=== PATIENT | male | born 1945 | race Hispanic/Latino ===

== ENCOUNTER 2024-09-24 06:30 | Day surgery (SDC) | payer OTHER ==
[2024-09-24] VITALS (13 sets, daily range): BP systolic 105–172; BP diastolic 44–71; PULSE 61–75; RESP 15–18; TEMP 97.3–98.1
[~2024-09-24] VITALS: Ht 170.2 cm; Wt 72.6 kg
[~2024-09-24 06:30] MED LIST: FERR-63 PO; LOSA100T59 PO; PRAV20TA4 PO; TAMS-1 PO
[2024-09-24] MEDS ORDERED: 0.9%NACL 1000ML 1,000 ML IV ONE (06:32)
[2024-09-24] MEDS: 0.9%NACL 1000ML 1,000 ML IV ONE (07:43)
[2024-09-24] MEDS ORDERED: proPOFol 10 MG/ML 20ML VIAL IV ONE (08:30)
--- NOTE | 2024-09-24 10:34 | NUR ---
FULL AND COMPLETE DISCHARGE INSTRUCTIONS GIVEN BOTH VERBALLY AND IN WRITING TO PATIENT AND FAMILY. ALL QUESTIONS ANSWERED. PIV REMOVED WITH CATHETER TIP INTACT. DENIES CURRENT PAIN OR NAUSEA. VOICED UNDERSTANDING TO GI INSTRUCTIONS AND FOLLOW UP. W/C TO POV WITH FAMILY TO HOME
== END 2024-09-24 10:34 | disposition home or self-care (01) ==
LOC: ENDO 06:30 → DAH 06:30 → ENDO 10:34
PROVIDERS: ATTEND Internal Medicine Gastroenterology
DX: Z12.11 Encounter for screening for malignant neoplasm of colon (principal); K57.30 Diverticulosis of large intestine without perforation or abscess without bleeding; K62.89 Other specified diseases of anus and rectum; C18.9 Malignant neoplasm of colon, unspecified; I10 Essential (primary) hypertension; E78.5 Hyperlipidemia, unspecified; Z87.442 Personal history of urinary calculi
CPT/HCPCS: 45381; 45380; J7030 ×2; J2704; A4620; A4215 ×2; J3490

== ENCOUNTER 2024-10-20 06:00 | Inpatient (IN) | payer OTHER ==
[2024-10-15 14:35] VITALS: BP 192/92; PULSE 74; RESP 18; TEMP 97.8
[2024-10-15 14:54] LABS: BASOPHILS # (AUTO) 0.02 K/uL (0.00-0.20); BASOPHILS % (AUTO) 0.3 % (0.0-5.0); EOSINOPHILS % (AUTO) 2.5 % (0.0-8.0); HEMATOCRIT 36.5 % (42-54); IMMATURE GRANULOCYTE ABSOLUTE 0.04 K/uL (0-1); LYMPHOCYTES # (AUTO) 2.8 K/uL (1.0-4.8); LYMPHOCYTES % (AUTO) 35.4 % (21.0-51.0); MEAN CORPUSCULAR HEMOGLOBIN 24.4 pg (27.0-33.0); MEAN CORPUSCULAR HGB CONC 30.4 g/dL (32.0-36.0); MEAN CORPUSCULAR VOLUME 80.2 fL (79-99); MONOCYTES # (AUTO) 0.4 K/uL (0.1-1.0); MONOCYTES % (AUTO) 4.5 % (3.0-13.0); NEUTROPHILS # (AUTO) 4.5 K/uL (1.8-7.7); NEUTROPHILS % (AUTO) 56.8 % (40.0-77.0); PLATELET COUNT (AUTO) 232 K/uL (130-400); RED BLOOD CELL COUNT(AUTO) 4.55 MIL/uL (4.50-6.20); RED CELL DISTRIBUTION WIDTH 16.8 % (11.0-15.5)
[2024-10-15 15:07] LABS: INR 0.97 (0.85-1.15); PROTHROMBIN TIME 10.9 SEC (9.6-11.6)
[2024-10-15 15:08] LABS: PARTIAL THROMBOPLASTIN TIME 30.9 SEC (26.3-35.5)
[2024-10-15 15:11] LABS: ALBUMIN 2.7 g/dL (3.5-5.0); BILIRUBIN,TOTAL 0.4 mg/dL (0.2-1.0); CREATININE 0.9 mg/dL (0.5-1.3); POTASSIUM 4.5 mmol/L (3.5-5.1); TOTAL PROTEIN, SERUM 6.7 g/dL (6.0-8.3)
--- NOTE | 2024-10-16 07:03 | EKG ---
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
[~2024-10-20] VITALS: Ht 172.7 cm; Wt 73.1 kg
[2024-10-20] VITALS (30 sets, daily range): BP systolic 135–185; BP diastolic 55–99; PULSE 78–98; RESP 13–20; TEMP 97.1–100.6; O2SAT 94
[~2024-10-20 06:00] MED LIST changes: +CYAN25002 SL
[2024-10-20] MEDS: MEROPENEM 1GM 1 GM VIAL ONE (06:58)
[2024-10-20] MEDS: LACTATED RINGERS 1000ML 1,000 ML IV ONE (06:59)
[2024-10-20] MEDS ORDERED: dexaMETHasone SOD PHOSPHATE 10MG/ML 1ML VIAL ONE (07:04)
[2024-10-20] MEDS ORDERED: LIDOCAINE PF 100MG/5ML (2%) SYRINGE 5ML ONE (07:04)
[2024-10-20] MEDS ORDERED: LIDOCAINE 1%-EPI 1:100,000 20 ML VIAL ONE (07:05)
[2024-10-20] MEDS ORDERED: rocuRONium bROMide 10MG/1ML 5ML VL ONE (07:05)
[2024-10-20] MEDS ORDERED: NEOSTIGMINE METHYLSULFATE 1MG/ML IV ONE (07:05)
[2024-10-20] MEDS ORDERED: proPOFol 10 MG/ML 20ML VIAL IV ONE (07:05)
[2024-10-20] MEDS ORDERED: SUCCINYLCHOLINE CHLORIDE 20 MG/ML 10 ML VIAL ONE (07:05)
[2024-10-20] MEDS ORDERED: FENTanyl CITRate PF 50 MCG/1 ML 2ML VIAL ONE ×3 (07:05→08:49)
[2024-10-20] MEDS ORDERED: GLYCOPYRROLATE 0.2 MG/ML 5 ML VIAL ONE (07:05)
[2024-10-20] MEDS ORDERED: ondanSETRON 4MG INJ ONE (07:05)
[2024-10-20] MEDS ORDERED: phenylEPHRINE HCL 10 MG/ML 1ML VIAL IV ONE (07:10)
[2024-10-20] MEDS ORDERED: ketaMINE 50MG/ML SYRINGE 50 MG/ML DISP.SYRIN ONE (07:40)
[2024-10-20] MEDS ORDERED: ALBUMIN (HUMAN) 5% 250 ML IV ONE (07:40)
[2024-10-20] MEDS ORDERED: MIDAZOLAM HCL 1 MG/ML 2ML VIAL ONE (07:43)
[2024-10-20] MEDS: BUPIvacaine/PF 0.5% 30ML VIAL ONE (10:20)
[2024-10-20] MEDS: LIDOCAINE 1%-EPI 1:100,000 20 ML VIAL ONE (10:20)
[2024-10-20] MEDS ORDERED: FENTanyl CITRate PF 50 MCG/1 ML 5ML AMP IV ONE (10:28)
--- NOTE | 2024-10-20 10:56 | OP ---
Operative Note: DATE OF PROCEDURE: 10/20/24 SURGEON: CESAR SHOEMAKER MD BILLPOSTING SUPERVISOR: [None.] ANESTHESIA: [General plus local.] ANESTHESIOLOGIST/RESIDENTIAL SOLAR SALES CONSULTANT: [Darci Beal CRNA] PREOPERATIVE DIAGNOSIS: [Malignant neoplasm of the ascending colon] POSTOPERATIVE DIAGNOSIS: [Same] SYNOPSIS: [Proven adenocarcinoma of the ascending colon] PROCEDURE: [Robotic assisted right hemicolectomy. Infusion of ICG for perfusion assessment of the graft. Create of pedicle omental flap.] ESTIMATED BLOOD LOSS: [25 mL] INDICATIONS: [This is a 79-year-old male who was diagnosed with an carcinoma of the ascending colon following a visit to the ER the trigger a CT scan of the abdomen and a mass was found. Colonoscopy confirmed the diagnosis. Staging was negative for metastatic disease. He presents today for a robotic assisted right hemicolectomy and all other indicated procedures. The mass was partially occluding the lumen so he was advised to undergo surgery. Risks were abrasions and alternatives were explained in detail to the patient, and after all questions were answered to his satisfaction, he granted consent.] DESCRIPTION OF PROCEDURE: [The patient was identified in the holding area transferred to the OR placed supine on the operative table. Venodyne boots were placed for DVT prophylaxis. IV antibiotics were given within the hour of skin incision. After general anesthesia was obtained time-out conducted his abdomen was prepped and draped in the usual sterile fashion. We gained access to the abdomen via Veress needle in the left upper quadrant, pneumoperitoneum created to 15 mmHg. Under direct vision 8 mm port placed to the right of the infraumbilical region. This was followed by a mm ports linearly in the lower abdomen a 12 mm port in the left lower quadrant. Assist port was placed in the left flank of the patient. The Maria Eugenia excise was doc in a sterile fashion. It was clearly evident the patient had a large mass in the ascending colon identified by the colon appearance and the tattoo previously placed. We began the procedure by taking down the colon gastric ligament this was done without complications. Then the colon was mobilized in the medial-lateral fashion. The ileocolic vessels were dissected all the way to the origin and transected with a stapler device. The middle colic vessels were identified in the left colic basal taken with the vessel sealer as well as a right colic coming out of the SMA. Complete mobilization of the colon was performed and it was a staple at the mid transverse colon and the terminal ileum with a blue load. The specimen was then extracted via Pfannenstiel incision. Surgical bed was irrigated and aspirated clear and hemostasis noted to be excellent. ICG was given an excellent perfusion identified. The colon was then line up with the small bowel and a [id number] anastomosis, in an isoperistaltic fashion, was performed with a YOUSIF robotic stapler. The common channel was closed in two layers with V lock sutures in a 3-0 absorbable fashion. Abdomen was irrigated and aspirated clear hemostasis noted to be excellent, the anastomosis was then assessed perfusion once again we ICG and noted to be excellent. An omental flap was created with a pedicle from the gastroepiploic to cover the anastomosis. At this point procedure was completed. There was no tension in the anastomosis and excellent perfusion. Counts were done and correct. The robot was undocked ports removed under direct vision. Pfannenstiel incision closed in layers with Vicryl followed by PDS followed by 4-0 Monocryl. Profuse irrigation of the skin and subcutaneous tissues was performed with saline and Betadine. Local anesthesia had been injected in the wounds. 4-0 Monocryl used for the skin followed by Dermabond. Counts were done and correct once again there were no complications I was present and scrubbed for the entire case.] CESAR LEHMAN MD Oct 20, 2024 10:56
[2024-10-20] MEDS ORDERED: D5W-1/2 NS/20MEQ KCL 1,000 ML IV SCH (11:00)
[2024-10-20] MEDS ORDERED: morPHINE 4 MG SYG IV PRN (11:00)
[2024-10-20] MEDS ORDERED: ondanSETRON 4MG INJ IVP PRN (11:00)
[2024-10-20] MEDS: hydrALAZine 20MG/ML VIAL ONE (11:33)
[2024-10-20] MEDS: LAbetaLOL 20MG SYG IV ONE (13:20)
[2024-10-20] MEDS: HEParin 5,000 UNIT VIAL SQ SCH (14:00)
[2024-10-20 15:17] LABS: HEMATOCRIT 35.9 % (42-54); MEAN CORPUSCULAR HEMOGLOBIN 24.3 pg (27.0-33.0); MEAN CORPUSCULAR HGB CONC 30.9 g/dL (32.0-36.0); MEAN CORPUSCULAR VOLUME 78.7 fL (79-99); PLATELET COUNT (AUTO) 240 K/uL (130-400); RED BLOOD CELL COUNT(AUTO) 4.56 MIL/uL (4.50-6.20); RED CELL DISTRIBUTION WIDTH 16.7 % (11.0-15.5)
[2024-10-20 15:21] LABS: BASOPHILS # (AUTO) 0.01 K/uL (0.00-0.20); BASOPHILS % (AUTO) 0.1 % (0.0-5.0); IMMATURE GRANULOCYTE ABSOLUTE 0.04 K/uL (0-1); LYMPHOCYTES # (AUTO) 2.1 K/uL (1.0-4.8); LYMPHOCYTES % (AUTO) 17.4 % (21.0-51.0); MONOCYTES # (AUTO) 0.7 K/uL (0.1-1.0); MONOCYTES % (AUTO) 5.5 % (3.0-13.0); NEUTROPHILS # (AUTO) 9.3 K/uL (1.8-7.7); NEUTROPHILS % (AUTO) 76.7 % (40.0-77.0)
[2024-10-20 15:32] LABS: ALBUMIN 2.8 g/dL (3.5-5.0); BILIRUBIN,TOTAL 0.6 mg/dL (0.2-1.0); TOTAL PROTEIN, SERUM 6.2 g/dL (6.0-8.3)
[2024-10-20] MEDS: HYDROcodone/APAP 5/325 1 TAB TABLET PO PRN (20:33)
[2024-10-21] VITALS (8 sets, daily range): BP systolic 142–184; BP diastolic 60–79; PULSE 86–106; RESP 17–20; TEMP 98–99.5; O2SAT 100
[2024-10-21 05:39] LABS: BASOPHILS # (AUTO) 0.01 K/uL (0.00-0.20); BASOPHILS % (AUTO) 0.1 % (0.0-5.0); IMMATURE GRANULOCYTE ABSOLUTE 0.04 K/uL (0-1); LYMPHOCYTES # (AUTO) 3.3 K/uL (1.0-4.8); LYMPHOCYTES % (AUTO) 24.7 % (21.0-51.0); MEAN CORPUSCULAR HGB CONC 31.1 g/dL (32.0-36.0); MEAN CORPUSCULAR VOLUME 76.9 fL (79-99); MONOCYTES # (AUTO) 0.5 K/uL (0.1-1.0); MONOCYTES % (AUTO) 3.7 % (3.0-13.0); NEUTROPHILS # (AUTO) 9.5 K/uL (1.8-7.7); NEUTROPHILS % (AUTO) 71.2 % (40.0-77.0); PLATELET COUNT (AUTO) 246 K/uL (130-400); RED BLOOD CELL COUNT(AUTO) 4.55 MIL/uL (4.50-6.20); RED CELL DISTRIBUTION WIDTH 16.7 % (11.0-15.5); WHITE BLOOD COUNT (AUTO) 13.3 K/uL (4.8-10.8)
[2024-10-21 05:56] LABS: POTASSIUM 4.1 mmol/L (3.5-5.1)
--- NOTE | 2024-10-21 07:11 | PN ---
COLORECTAL PROGRESS NOTE Date of Visit: Oct 21, 2024 Time of Visit: 07:08 Events / Notes: [79 YO with ascending colon cancer who underwent a robotic assisted right hemicolectomy with omental flap creation, and Systemic ICG for perfusion assessment of anastomotic graft. He had elevated temp 100.6 last night. He is doing very well this morning. His pain is controlled. VSS this am. He has tolerated full liquid diet with no n/v. BBS are clear. Abd is soft and not distended. Active BS present. He reports passing flatus and watery stool x 1. He is voiding well. Incisions D&I rock with dermabond. Encouraged ambulation and I/S exercises.He agreed. ] Review of Systems: CONSTITUTIONAL: No malaise or change in sensation of wellbeing. ENMT: No rhinorrhea, otorrhea, sinus pain, ear ache. CARDIOVASCULAR: No angina, palpitations, orthopnea or paroxysmal dyspnea. RESPIRATORY: No SOB. GASTROINTESTINAL: No abdominal pain, nausea, vomiting, diarrhea, hematemesis, melena or change in the patient's habitual bowel movements consistency/number. GENITOURINARY: No dysuria, hematuria or change in bladder continence. MUSCULOSKELETAL: No new muscle pain or decrease in muscular strength. No new joint swelling, redness or tenderness. SKIN: No new rash. Physical Exam: GEN: Awake, alert, oriented in person, time and place, and in no acute distress. HEENT: No rhinorrhea. Oral pharyngeal mucosa is pink, moist and within normal limits. CHEST: Inspection, palpation of the chest were unremarkable. Lung auscultation revealed normal breath sounds bilaterally. CARDIAC: Heart sounds are regular. ABD: Soft, non-tender and not distended. No peritoneal signs on palpation. No organomegaly. Normal bowel sounds.Incisions D& I to with dermabond. EXT: No cyanosis or clubbing. No edema. SKIN: Intact. No rashes. JOINTS: No evidence of synovitis or acute arthritis. NEURO: Alert and oriented to name, place and person. No focal motor deficits. Normal speech. Strength is normal. Vital Signs (last 8hr) Date Time Temp Pulse Resp B/P (MAP) Pulse Ox O2 Delivery O2 Flow Rate FiO2 10/21/24 04:23 99.0 87 17 145/60 96 Room Air 21 10/20/24 23:33 100.6 88 17 150/57 94 Room Air 21 Laboratory: [ ] Laboratory: Test 10/21/24 05:26 10/20/24 15:00 Range/Units White Blood Count 13.3 H 4.8-10.8 K/uL Red Blood Count 4.55 4.50-6.20 MIL/uL Hemoglobin 10.9 L 14.0-18.0 g/dL Hematocrit 35.0 L 42-54 % Mean Corpuscular Volume 76.9 L 79-99 fL Mean Corpuscular Hemoglobin 24.0 L 27.0-33.0 pg Mean Corpuscular Hemoglobin Concent 31.1 L 32.0-36.0 g/dL Red Cell Distribution Width 16.7 H 11.0-15.5 % Platelet Count 246 130-400 K/uL Mean Platelet Volume 10.1 7.5-10.5 fL Immature Granulocyte % (Auto) 0.3 0-1 % Neutrophils (%) (Auto) 71.2 40.0-77.0 % Lymphocytes (%) (Auto) 24.7 21.0-51.0 % Monocytes (%) (Auto) 3.7 3.0-13.0 % Eosinophils (%) (Auto) 0.0 0.0-8.0 % Basophils (%) (Auto) 0.1 0.0-5.0 % Neutrophils # (Auto) 9.5 H 1.8-7.7 K/uL Lymphocytes # (Auto) 3.3 1.0-4.8 K/uL Monocytes # (Auto) 0.5 0.1-1.0 K/uL Eosinophils # (Auto) 0.00 0.00-0.70 K/uL Basophils # (Auto) 0.01 0.00-0.20 K/uL Absolute Immature Granulocyte (auto 0.04 0-1 K/uL Nucleated Red Blood Cells 0.0 0.0-0.19 % Sodium Level 138 136-145 mmol/L Potassium Level 4.1 3.5-5.1 mmol/L Chloride Level 103 101-111 mmol/L Carbon Dioxide Level 29 21-32 mmol/L Blood Urea Nitrogen 11 7-18 mg/dL Creatinine 1.0 0.5-1.3 mg/dL Glomerular Filtration Rate Calc 78 >90 mL/min Random Glucose 119 H 70-105 mg/dL Total Calcium 8.6 8.5-10.1 mg/dL Total Bilirubin 0.6 0.2-1.0 mg/dL Aspartate Amino Transf (AST/SGOT) 14 10-37 U/L Alanine Aminotransferase (ALT/SGPT) 15 12-78 U/L Alkaline Phosphatase 88 50-136 U/L Total Protein 6.2 6.0-8.3 g/dL Albumin 2.8 L 3.5-5.0 g/dL Current Medications Medications (Trade) Dose Ordered Sig/Hayden Route PRN Reason Start Time Stop Time Status Last Admin Dose Admin Acetaminophen/ Hydrocodone Bitart (NORco 5/325MG) 1 tab Q4H PRN PO MODERATE PAIN (4-6) 10/20/24 11:00 10/25/24 10:59 10/20/24 20:33 1 TAB Heparin Sodium (Porcine) (HEParin 5,000 UNIT VIAL) 5,000 unit TID SQ 10/20/24 14:00 11/19/24 13:59 10/20/24 20:37 5,000 UNIT Morphine Sulfate (morPHINE 4MG SYG) 4 mg Q3H PRN IV SEVERE PAIN (7-10) 10/20/24 11:00 10/27/24 10:59 Ondansetron HCl (zoFRAN 4MG INJ) 4 mg Q4H PRN IVP NAUSEA 10/20/24 11:00 11/19/24 10:59 Potassium Chloride/Dextrose/ Sod Cl 1,000 ml @ 75 mls/hr [id number] IV 10/20/24 11:00 11/19/24 10:59 Assessment: [ Ascending colon cancer] Plan: [Advance diet Encourage ambulation Encourage I/S exercises Pain meds as needed Antiemetics prn Plan for disposition in the next 24-48 hours Please call with questions, concerns, and change in clinical status Appreciate hospitalist's assistance in our patient care. ] ADA ZHONG NP Oct 21, 2024 07:11
--- NOTE | 2024-10-21 12:36 | CONS ---
[facility] CONSULTATION NOTE Date of Service: Oct 21, 2024 Reason for Consultation: [Medical management ] Requesting Physician: [Dr. Tre Fajardo ] HISTORY OF PRESENT ILLNESS: [79-year-old male with a history of malignant neoplasm of ascending colon. The patient was being followed by [place] digestive specialist. He has past medical history of essential hypertension and hyperlipidemia. Apparently this patient had a CT at [facility] and underwent colonoscopy after he was found to have mass on CT scan. He was under going workup for recurrent UTIs. This patient had biopsy proven adenocarcinoma of the colon. Patient has been stage and there is no clear evidence of metastatic disease. He was offered surgery for robotic versus laparoscopic versus open partial colectomy for which was done on 10/20/2024, and tolerated well. Today, patient was evaluated in the room in no acute distress. Colorectal surgeon advance his diet and plans on discharging him today. We were consulted for medical management. ] REVIEW OF SYSTEMS CONSTITUTIONAL: Denies fevers, chills, or night sweats. No unintentional weight loss reported. NEUROLOGICAL: Denies headache, amaurosis fugax, motor weakness, sensory deficit, vertigo/spinning sensation, gait abnormalities, or tremors. ENT: No hearing loss, otalgia, otorrhea, rhinitis, rhinorrhea, hoarseness, or sore throat. CARDIOVASCULAR: Denies any exertional angina, dyspnea on exertion, orthopnea, paroxysmal nocturnal dyspnea, palpitations, life-threatening arrhythmias, claudication. PULMONARY: Denies any shortness of breath, cough, phlegm/sputum, hemoptysis, pleuritic chest pain. SLEEP: Denies morning headaches, daytime somnolence or napping. Denies diffic ulty falling asleep, staying asleep, waking from sleep. Denies knowledge of snoring. GASTROINTESTINAL: Denies any type of dysphagia to either liquids or solids. Denies nausea, vomiting, pyrosis, early satiety, abdominal pain, diarrhea, constipation, or changes in stool consistency or caliber. Denies coffee-ground emesis, hematemesis, hematochezia, or melanotic stools. GENITOURINARY: Denies frequency, urgency, nocturia, hematuria or incontinence (Storage/Irritative symptoms.) Low urinary stream, straining to void, urinary intermittency or hesitancy, splitting of the voiding stream, terminal dribbling. ENDOCRINOLOGIC: Denies polyuria, polydipsia, polyphagia or heat/cold into lerances. HEMATOLOGIC: Denies thrombophilia/previous clots, or coagulopathy/bleeding disorders. ONCOLOGIC: Denies personal history of malignancy. DERMATOLOGIC: Denies rashes or pruritus. PSYCHIATRIC: Denies any suicidal or homicidal ideation. Denies hallucinations. PAST MEDICAL HISTORY: [Hypertension, hyperlipidemia, kidney stones ] PAST SURGICAL HISTORY: [Colonoscopy ] PAST SOCIAL HISTORY: [Patient has five daughters, denies tobacco, alcohol or illicit drug use ] FAMILY HISTORY: [Sister passed from lung cancer and non-Hodgkin's lymphoma ] Coded Allergies: No Known Allergies (Unverified Allergy, Unknown, 09/23/24) PHYSICAL EXAM GENERAL APPEARANCE: The patient is awake, alert, and oriented, in no acute cardiopulmonary distress. NEUROLOGICAL: Cranial nerves II-XII grossly intact. Motor is 5/5 in bilateral upper and lower extremities proximal to distal. No sensory deficits. HEENT: Face is symmetric. Pupils are equal and reactive. Extraocular movements are intact. NECK: Supple. No JVD. No thyromegaly. No submental, submandibular, pre- /postauricular, occipital or supraclavicular lymphadenopathy. CHEST: Normal chest expansion. No Telemetry. LUNGS: Absence of any rales, rhonchi or any wheezing. CARDIOVASCULAR: Regular. S1 and S2 normal. No appreciable rubs, murmurs or gallops. ABDOMEN: Soft, nontender, and nondistended. There is no rebound, voluntary guarding, or rigidity. : Deferred. No Owens. EXTREMITIES: Non-edematous and not cyanotic. No clubbing. Good capillary refill. SKIN: No skin breakdown. Vital Sign (Last 24 Hours) 10/21/24 10/21/24 07:30 11:05 Temp 98.1 Pulse 90 Resp 20 B/P (MAP) 147/66 Pulse Ox 95 O2 Delivery Room Air O2 Flow Rate 0 FiO2 21 Intake & Output (last 24hrs) 10/20/24 10/20/24 10/21/24 15:00 23:00 07:00 Intake Total 250.0 ml Output Total 300 ml Balance -50.0 ml LABS: Laboratory: Test 10/21/24 05:26 10/20/24 15:00 Range/Units White Blood Count 13.3 H 4.8-10.8 K/uL Red Blood Count 4.55 4.50-6.20 MIL/uL Hemoglobin 10.9 L 14.0-18.0 g/dL Hematocrit 35.0 L 42-54 % Mean Corpuscular Volume 76.9 L 79-99 fL Mean Corpuscular Hemoglobin 24.0 L 27.0-33.0 pg Mean Corpuscular Hemoglobin Concent 31.1 L 32.0-36.0 g/dL Red Cell Distribution Width 16.7 H 11.0-15.5 % Platelet Count 246 130-400 K/uL Mean Platelet Volume 10.1 7.5-10.5 fL Immature Granulocyte % (Auto) 0.3 0-1 % Neutrophils (%) (Auto) 71.2 40.0-77.0 % Lymphocytes (%) (Auto) 24.7 21.0-51.0 % Monocytes (%) (Auto) 3.7 3.0-13.0 % Eosinophils (%) (Auto) 0.0 0.0-8.0 % Basophils (%) (Auto) 0.1 0.0-5.0 % Neutrophils # (Auto) 9.5 H 1.8-7.7 K/uL Lymphocytes # (Auto) 3.3 1.0-4.8 K/uL Monocytes # (Auto) 0.5 0.1-1.0 K/uL Eosinophils # (Auto) 0.00 0.00-0.70 K/uL Basophils # (Auto) 0.01 0.00-0.20 K/uL Absolute Immature Granulocyte (auto 0.04 0-1 K/uL Nucleated Red Blood Cells 0.0 0.0-0.19 % Sodium Level 138 136-145 mmol/L Potassium Level 4.1 3.5-5.1 mmol/L Chloride Level 103 101-111 mmol/L Carbon Dioxide Level 29 21-32 mmol/L Blood Urea Nitrogen 11 7-18 mg/dL Creatinine 1.0 0.5-1.3 mg/dL Glomerular Filtration Rate Calc 78 >90 mL/min Random Glucose 119 H 70-105 mg/dL Total Calcium 8.6 8.5-10.1 mg/dL Total Bilirubin 0.6 0.2-1.0 mg/dL Aspartate Amino Transf (AST/SGOT) 14 10-37 U/L Alanine Aminotransferase (ALT/SGPT) 15 12-78 U/L Alkaline Phosphatase 88 50-136 U/L Total Protein 6.2 6.0-8.3 g/dL Albumin 2.8 L 3.5-5.0 g/dL DIAGNOSTICS / RADIOLOGY: [ ] ASSESSMENT: [Adenocarcinoma of the colon Hypertension Hyperlipidemia Kidney insufficiency ] PLAN: [Admit to medical-surgical floor We will follow postop orders from colorectal surgeon Patient's diet as been advanced to GI soft No more IV fluids DC planning per primary Treatment plan discussed with patient and family at the bedside Medications to be reconciled once obtained by patient and/or family and available to be reconciled in computer P.r.n. medication for pain nausea and vomiting Questions were answered We will continue to monitor the patient closely Director Industrial Nursing for disposition Rehab: PT/OT/ST GI: PPI DVT: SCD's Code Status: Full Resuscitation Disposition: TBD Prognosis: Guarded NEURO: Minimize central acting medications as possible. Fall Precautions. Well lighted room through the day and minimize interruptions through the night to prevent acute delirium. PULMONARY: Supplemental 02 as needed BiPAP as necessary, for respiratory distress Titrate Fio2 to keep Spo2 > or = 90% DuoNebs and CPT as needed IS hourly while awake for pulmonary hygiene Out of bed to chair as tolerated VAP Bundle Maintain aspiration precautions at all times CARDIOVASCULAR: Follow hemodynamics. Vital signs per facility protocol GI & NUTRITION: Continue nutritional support Aspirations precautions Prokinetic agents and laxatives as needed KIDNEYS & ELECTROLYTES: Strict monitoring of intake and output Daily weights Avoid nephrotoxic agents Monitor electrolytes and replace as needed Goal urine output of 30mL/hr or 0.5mL/kg/hr Medications to be dosed according to renal function. Avoid contrast if possible ENDOCRINE: Maintain blood glucose between 100-180 at all times. Insulin sliding scale for blood glucose management Hypoglycemia and hyperglycemia protocol in place INFECTIOUS DISEASE: Trend temperature, WBC and procalcitonin level Follow cultures, deescalate antibiotics as soon as possible. Panculture if new onset fever HEMATOLOGY & COAGULATION: Monitor H&H. Keep Hgb > 7 Transfuse 1 unit of PRBC for Hgb < 7 Transfuse 1 pack of platelets of platelets < 20, 000 Watch for any signs and symptoms of bleeding SKIN: Pressure ulcer prevention per facility protocol Specialty mattress as needed ] ] ATTESTATION BY PHYSICIAN I have seen and examined the patient. I reviewed the documentation, medical decision making, and treatment plan as noted by the mid-level provider above. I agree with the findings and plan of care. Olga Lugo MD, JANICE B BANNER MD [facility] Oct 21, 2024 12:36
[2024-10-21] MEDS ORDERED: acetaMINOPHEN 325 MG TAB PO PRN ×2 (13:00)
[2024-10-21] MEDS: FAMOTIDINE 20MG TAB PO SCH (20:53)
[2024-10-22] VITALS (7 sets, daily range): BP systolic 113–154; BP diastolic 61–90; PULSE 86–110; RESP 17–18; TEMP 97.9–98.7; O2SAT 97–100
[2024-10-22 06:11] LABS: BASOPHILS # (AUTO) 0.02 K/uL (0.00-0.20); BASOPHILS % (AUTO) 0.1 % (0.0-5.0); LYMPHOCYTES # (AUTO) 3.2 K/uL (1.0-4.8); MEAN CORPUSCULAR HEMOGLOBIN 24.1 pg (27.0-33.0); MEAN CORPUSCULAR HGB CONC 31.4 g/dL (32.0-36.0); MEAN CORPUSCULAR VOLUME 76.9 fL (79-99); MONOCYTES # (AUTO) 0.5 K/uL (0.1-1.0); MONOCYTES % (AUTO) 3.3 % (3.0-13.0); NEUTROPHILS # (AUTO) 12.1 K/uL (1.8-7.7); PLATELET COUNT (AUTO) 275 K/uL (130-400); RED BLOOD CELL COUNT(AUTO) 4.81 MIL/uL (4.50-6.20); RED CELL DISTRIBUTION WIDTH 16.9 % (11.0-15.5); WHITE BLOOD COUNT (AUTO) 15.9 K/uL (4.8-10.8)
[2024-10-22 06:24] LABS: CREATININE 0.8 mg/dL (0.5-1.3); MAGNESIUM 1.8 mg/dL (1.80-2.40); POTASSIUM 4.3 mmol/L (3.5-5.1)
--- NOTE | 2024-10-22 08:30 | PN ---
COLOR[facility] PROGRESS NOTE Date of Visit: Oct 22, 2024 Time of Visit: 08:27 Events / Notes: [79 YO with ascending colon cancer who underwent a robotic assisted right hemicolectomy with omental flap creation, and Systemic ICG for perfusion assessment of anastomotic graft. He had elevated temp 100.6 last night. He is doing very well this morning. His pain is controlled. VSS this am. He has tolerated full liquid diet with no n/v. BBS are clear. Abd is soft and not distended. Active BS present. He reports passing flatus and watery stool x 1. He is voiding well. Incisions D&I rock with dermabond. Encouraged ambulation and I/S exercises.He agreed. 10/22/24: No acute events overnight. Patient is progressing very well. VSS. He is tolerating regular diet; no n/v. He is ambulating, voiding and has had +BMS. BBS are clear. Abdomen is soft and not distended. Active BS are present. Plan for discharge this afternoon after repeat CBC. Encouraged ambulation. All home care instructions with ER warnings were given to patient and daughter. Both verbalized understanding and agreement. ] Review of Systems: CONSTITUTIONAL: No malaise or change in sensation of wellbeing. ENMT: No rhinorrhea, otorrhea, sinus pain, ear ache. CARDIOVASCULAR: No angina, palpitations, orthopnea or paroxysmal dyspnea. RESPIRATORY: No SOB. GASTROINTESTINAL: No abdominal pain, nausea, vomiting, diarrhea, hematemesis, melena or change in the patient's habitual bowel movements consistency/number. GENITOURINARY: No dysuria, hematuria or change in bladder continence. MUSCULOSKELETAL: No new muscle pain or decrease in muscular strength. No new joint swelling, redness or tenderness. SKIN: No new rash. Physical Exam: GEN: Awake, alert, oriented in person, time and place, and in no acute distress. HEENT: No rhinorrhea. Oral pharyngeal mucosa is pink, moist and within normal limits. CHEST: Inspection, palpation of the chest were unremarkable. Lung auscultation revealed normal breath sounds bilaterally. CARDIAC: Heart sounds are regular. ABD: Soft, non-tender and not distended. No peritoneal signs on palpation. No organomegaly. Normal bowel sounds.Incisions D& I to with dermabond. EXT: No cyanosis or clubbing. No edema. SKIN: Intact. No rashes. JOINTS: No evidence of synovitis or acute arthritis. NEURO: Alert and oriented to name, place and person. No focal motor deficits. Normal speech. Strength is normal. Vital Signs (last 8hr) Date Time Temp Pulse Resp B/P (MAP) Pulse Ox O2 Delivery O2 Flow Rate FiO2 10/22/24 07:15 97.9 89 18 113/61 96 Room Air 21 10/22/24 03:25 98.8 110 17 145/85 97 Room Air 21 Laboratory: [ ] Laboratory: Test 10/22/24 05:34 10/20/24 15:00 Range/Units White Blood Count 15.9 H 4.8-10.8 K/uL Red Blood Count 4.81 4.50-6.20 MIL/uL Hemoglobin 11.6 L 14.0-18.0 g/dL Hematocrit 37.0 L 42-54 % Mean Corpuscular Volume 76.9 L 79-99 fL Mean Corpuscular Hemoglobin 24.1 L 27.0-33.0 pg Mean Corpuscular Hemoglobin Concent 31.4 L 32.0-36.0 g/dL Red Cell Distribution Width 16.9 H 11.0-15.5 % Platelet Count 275 130-400 K/uL Mean Platelet Volume 10.5 7.5-10.5 fL Immature Granulocyte % (Auto) 0.6 0-1 % Neutrophils (%) (Auto) 76.0 40.0-77.0 % Lymphocytes (%) (Auto) 20.0 L 21.0-51.0 % Monocytes (%) (Auto) 3.3 3.0-13.0 % Eosinophils (%) (Auto) 0.0 0.0-8.0 % Basophils (%) (Auto) 0.1 0.0-5.0 % Neutrophils # (Auto) 12.1 H 1.8-7.7 K/uL Lymphocytes # (Auto) 3.2 1.0-4.8 K/uL Monocytes # (Auto) 0.5 0.1-1.0 K/uL Eosinophils # (Auto) 0.00 0.00-0.70 K/uL Basophils # (Auto) 0.02 0.00-0.20 K/uL Absolute Immature Granulocyte (auto 0.10 0-1 K/uL Nucleated Red Blood Cells 0.0 0.0-0.19 % Sodium Level 142 136-145 mmol/L Potassium Level 4.3 3.5-5.1 mmol/L Chloride Level 107 101-111 mmol/L Carbon Dioxide Level 27 21-32 mmol/L Blood Urea Nitrogen 12 7-18 mg/dL Creatinine 0.8 0.5-1.3 mg/dL Glomerular Filtration Rate Calc 91 >90 mL/min Random Glucose 121 H 70-105 mg/dL Total Calcium 8.8 8.5-10.1 mg/dL Magnesium Level 1.80 1.80-2.40 mg/dL Total Bilirubin 0.6 0.2-1.0 mg/dL Aspartate Amino Transf (AST/SGOT) 14 10-37 U/L Alanine Aminotransferase (ALT/SGPT) 15 12-78 U/L Alkaline Phosphatase 88 50-136 U/L Total Protein 6.2 6.0-8.3 g/dL Albumin 2.8 L 3.5-5.0 g/dL Current Medications Medications (Trade) Dose Ordered Sig/Hayden Route PRN Reason Start Time Stop Time Status Last Admin Dose Admin Acetaminophen (TYLenol 325MG TAB) 650 mg Q4H PRN PO TEMPERATURE GREATER THAN 101.5 10/21/24 13:00 11/20/24 12:59 Acetaminophen (TYLenol 325MG TAB) 650 mg Q6H PRN PO MILD PAIN (1-3) 10/21/24 13:00 11/20/24 12:59 Acetaminophen/ Hydrocodone Bitart (NORco 5/325MG) 1 tab Q4H PRN PO MODERATE PAIN (4-6) 10/20/24 11:00 10/25/24 10:59 10/21/24 16:31 1 TAB Famotidine (Pepcid 20mg Tab) 20 mg BID PO 10/21/24 21:00 11/20/24 20:59 10/21/24 20:53 20 MG Heparin Sodium (Porcine) (HEParin 5,000 UNIT VIAL) 5,000 unit TID SQ 10/20/24 14:00 11/19/24 13:59 10/21/24 20:55 5,000 UNIT Morphine Sulfate (morPHINE 4MG SYG) 4 mg Q3H PRN IV SEVERE PAIN (7-10) 10/20/24 11:00 10/27/24 10:59 Ondansetron HCl (zoFRAN 4MG INJ) 4 mg Q4H PRN IVP NAUSEA 10/20/24 11:00 11/19/24 10:59 Potassium Chloride/Dextrose/ Sod Cl 1,000 ml @ 75 mls/hr [id number] IV 10/20/24 11:00 10/21/24 08:07 DC Assessment: [ Ascending colon cancer POD2: Patient progressing as expected.VSS. WBC elevated to 15 this am. Will repeat this afternoon. Plan for discharge if WBC begins trending down. ] Plan: [Advance diet Encourage ambulation Encourage I/S exercises Pain meds as needed Antiemetics prn Plan for disposition in the next 24 Please call with questions, concerns, and change in clinical status Appreciate hospitalist's assistance in our patient care. ] ADA ZHONG NP Oct 22, 2024 08:30
--- NOTE | 2024-10-22 10:42 | PN ---
[facility] PROGRESS NOTE Date of Service: Oct 22, 2024 Time of Service: 10:39 SUBJECTIVE: [79-year-old male with adenocarcinoma of the colon status post right colectomy on 10/21/2024. He was evaluated this morning, lying in bed, alert oriented x3. Abdominal surgical site noted no redness but tender to touch. Patient's vitals reviewed, patient was tachycardic last night. [place] [id number]. ] REVIEW OF SYSTEMS CONSTITUTIONAL: Denies fevers, chills, or night sweats. No unintentional weight loss reported. NEUROLOGICAL: Denies headache, amaurosis fugax, motor weakness, sensory deficit, vertigo/spinning sensation, gait abnormalities, or tremors. ENT: No hearing loss, otalgia, otorrhea, rhinitis, rhinorrhea, hoarseness, or sore throat. CARDIOVASCULAR: Denies any exertional angina, dyspnea on exertion, orthopnea, paroxysmal nocturnal dyspnea, palpitations, life-threatening arrhythmias, claudication. PULMONARY: Denies any shortness of breath, cough, phlegm/sputum, hemoptysis, pleuritic chest pain. SLEEP: Denies morning headaches, daytime somnolence or napping. Denies difficulty falling asleep, staying asleep, waking from sleep. Denies knowledge of snoring. GASTROINTESTINAL: Denies any type of dysphagia to either liquids or solids. Denies nausea, vomiting, pyrosis, early satiety, abdominal pain, diarrhea, constipation, or changes in stool consistency or caliber. Denies coffee-ground emesis, hematemesis, hematochezia, or melanotic stools. GENITOURINARY: Denies frequency, urgency, nocturia, hematuria or incontinence (Storage/Irritative symptoms.) Low urinary stream, straining to void, urinary intermittency or hesitancy, splitting of the voiding stream, terminal dribbling. ENDOCRINOLOGIC: Denies polyuria, polydipsia, polyphagia or heat/cold intolerances. HEMATOLOGIC: Denies thrombophilia/previous clots, or coagulopathy/bleeding dis orders. ONCOLOGIC: Denies personal history of malignancy. DERMATOLOGIC: Denies rashes or pruritus. PSYCHIATRIC: Denies any suicidal or homicidal ideation. Denies hallucinations. PHYSICAL EXAM GENERAL APPEARANCE: The patient is awake, alert, and oriented, in no acute cardiopulmonary distress. NEUROLOGICAL: Cranial nerves II-XII grossly intact. Motor is 5/5 in bilateral upper and lower extremities proximal to distal. No sensory deficits. HEENT: Face is symmetric. Pupils are equal and reactive. Extraocular movements are intact. NECK: Supple. No JVD. No thyromegaly. No submental, submandibular, pre- /postauricular, occipital or supraclavicular lymphadenopathy. CHEST: Normal chest expansion. No Telemetry. LUNGS: Absence of any rales, rhonchi or any wheezing. CARDIOVASCULAR: Regular. S1 and S2 normal. No appreciable rubs, murmurs or gallops. ABDOMEN: Soft, nontender, and nondistended. There is no rebound, voluntary guarding, or rigidity. : Deferred. No Owens. EXTREMITIES: Non-edematous and not cyanotic. No clubbing. Good capillary refill. SKIN: No skin breakdown. Vital Signs (last 8hr) Date Time Temp Pulse Resp B/P (MAP) Pulse Ox O2 Delivery O2 Flow Rate FiO2 10/22/24 07:15 97.9 89 18 113/61 96 Room Air 21 10/22/24 03:25 98.8 110 17 145/85 97 Room Air 21 LABS: Laboratory: Test 10/22/24 05:34 10/20/24 15:00 Range/Units White Blood Count 15.9 H 4.8-10.8 K/uL Red Blood Count 4.81 4.50-6.20 MIL/uL Hemoglobin 11.6 L 14.0-18.0 g/dL Hematocrit 37.0 L 42-54 % Mean Corpuscular Volume 76.9 L 79-99 fL Mean Corpuscular Hemoglobin 24.1 L 27.0-33.0 pg Mean Corpuscular Hemoglobin Concent 31.4 L 32.0-36.0 g/dL Red Cell Distribution Width 16.9 H 11.0-15.5 % Platelet Count 275 130-400 K/uL Mean Platelet Volume 10.5 7.5-10.5 fL Immature Granulocyte % (Auto) 0.6 0-1 % Neutrophils (%) (Auto) 76.0 40.0-77.0 % Lymphocytes (%) (Auto) 20.0 L 21.0-51.0 % Monocytes (%) (Auto) 3.3 3.0-13.0 % Eosinophils (%) (Auto) 0.0 0.0-8.0 % Basophils (%) (Auto) 0.1 0.0-5.0 % Neutrophils # (Auto) 12.1 H 1.8-7.7 K/uL Lymphocytes # (Auto) 3.2 1.0-4.8 K/uL Monocytes # (Auto) 0.5 0.1-1.0 K/uL Eosinophils # (Auto) 0.00 0.00-0.70 K/uL Basophils # (Auto) 0.02 0.00-0.20 K/uL Absolute Immature Granulocyte (auto 0.10 0-1 K/uL Nucleated Red Blood Cells 0.0 0.0-0.19 % Sodium Level 142 136-145 mmol/L Potassium Level 4.3 3.5-5.1 mmol/L Chloride Level 107 101-111 mmol/L Carbon Dioxide Level 27 21-32 mmol/L Blood Urea Nitrogen 12 7-18 mg/dL Creatinine 0.8 0.5-1.3 mg/dL Glomerular Filtration Rate Calc 91 >90 mL/min Random Glucose 121 H 70-105 mg/dL Total Calcium 8.8 8.5-10.1 mg/dL Magnesium Level 1.80 1.80-2.40 mg/dL Total Bilirubin 0.6 0.2-1.0 mg/dL Aspartate Amino Transf (AST/SGOT) 14 10-37 U/L Alanine Aminotransferase (ALT/SGPT) 15 12-78 U/L Alkaline Phosphatase 88 50-136 U/L Total Protein 6.2 6.0-8.3 g/dL Albumin 2.8 L 3.5-5.0 g/dL Current Medications Medications (Trade) Dose Ordered Sig/Hayden Route PRN Reason Start Time Stop Time Status Last Admin Dose Admin Acetaminophen (TYLenol 325MG TAB) 650 mg Q4H PRN PO TEMPERATURE GREATER THAN 101.5 10/21/24 13:00 11/20/24 12:59 Acetaminophen (TYLenol 325MG TAB) 650 mg Q6H PRN PO MILD PAIN (1-3) 10/21/24 13:00 11/20/24 12:59 Acetaminophen/ Hydrocodone Bitart (NORco 5/325MG) 1 tab Q4H PRN PO MODERATE PAIN (4-6) 10/20/24 11:00 10/25/24 10:59 10/21/24 16:31 1 TAB Famotidine (Pepcid 20mg Tab) 20 mg BID PO 10/21/24 21:00 11/20/24 20:59 10/22/24 10:19 20 MG Heparin Sodium (Porcine) (HEParin 5,000 UNIT VIAL) 5,000 unit TID SQ 10/20/24 14:00 11/19/24 13:59 10/22/24 10:20 5,000 UNIT Morphine Sulfate (morPHINE 4MG SYG) 4 mg Q3H PRN IV SEVERE PAIN (7-10) 10/20/24 11:00 10/27/24 10:59 Ondansetron HCl (zoFRAN 4MG INJ) 4 mg Q4H PRN IVP NAUSEA 10/20/24 11:00 11/19/24 10:59 Potassium Chloride/Dextrose/ Sod Cl 1,000 ml @ 75 mls/hr [id number] IV 10/20/24 11:00 10/21/24 08:07 DC DIAGNOSTICS / RADIOLOGY: [ ] ASSESSMENT: [Profound leukocytosis Adenocarcinoma of the colon Hypertension Hyperlipidemia Kidney insufficiency ] PLAN: [Admit to medical-surgical floor We will order procalcitonin, CRP, ESR stat Chest x-ray stat one view We will start patient on IV antibiotic with Zosyn every 8 hours We will follow postop orders from colorectal surgeon Patient's diet as been advanced to GI soft No more IV fluids DC planning per primary Treatment plan discussed with patient and family at the bedside Medications to be reconciled once obtained by patient and/or family and available to be reconciled in computer P.r.n. medication for pain nausea and vomiting Questions were answered We will continue to monitor the patient closely Lie Detector Operator for disposition Rehab: PT/OT/ST GI: PPI DVT: SCD's Code Status: Full Resuscitation Disposition: TBD Prognosis: Guarded NEURO: Minimize central acting medications as possible. Fall Precautions. Well lighted room through the day and minimize interruptions through the night to prevent acute delirium. PULMONARY: Supplemental 02 as needed BiPAP as necessary, for respiratory distress Titrate Fio2 to keep Spo2 > or = 90% DuoNebs and CPT as needed IS hourly while awake for pulmonary hygiene Out of bed to chair as tolerated VAP Bundle Maintain aspiration precautions at all times CARDIOVASCULAR: Follow hemodynamics. Vital signs per facility protocol GI & NUTRITION: Continue nutritional support Aspirations precautions Prokinetic agents and laxatives as needed KIDNEYS & ELECTROLYTES: Strict monitoring of intake and output Daily weights Avoid nephrotoxic agents Monitor electrolytes and replace as needed Goal urine output of 30mL/hr or 0.5mL/kg/hr Medications to be dosed according to renal function. Avoid contrast if possible ENDOCRINE: Maintain blood glucose between 100-180 at all times. Insulin sliding scale for blood glucose management Hypoglycemia and hyperglycemia protocol in place INFECTIOUS DISEASE: Trend temperature, WBC and procalcitonin level Follow cultures, deescalate antibiotics as soon as possible. Panculture if new onset fever HEMATOLOGY & COAGULATION: Monitor H&H. Keep Hgb > 7 Transfuse 1 unit of PRBC for Hgb < 7 Transfuse 1 pack of platelets of platelets < 20, 000 Watch for any signs and symptoms of bleeding SKIN: Pressure ulcer prevention per facility protocol Specialty mattress as needed ] ] ATTESTATION BY PHYSICIAN I have seen and examined the patient. I reviewed the documentation, medical decision making, and treatment plan as noted by the mid-level provider above. I agree with the findings and plan of care. Octavio Addison IV, MD, [facility] Oct 22, 2024 10:42
[2024-10-22] MEDS ORDERED: MAGNESIUM 2GM PREMIX 50ML 50 ML IV SCH (11:00)
--- NOTE | 2024-10-22 11:53 | HMCIMG ---
CHEST 1VW HISTORY: Leukocytosis COMPARISON: None FINDINGS: A frontal projection of the chest was obtained. No acute pulmonary infiltrates is seen. Prominent interstitial markings are seen. Bibasilar linear atelectasis changes are seen. Degenerative changes are seen. No evidence of aortic calcification is seen. IMPRESSION: 1. Bibasilar linear atelectasis.
[2024-10-22] MEDS: ZOSYN 3.375GM +NS 50ML IV SCH (12:38)
[2024-10-22 13:31] LABS: BASOPHILS # (AUTO) 0.02 K/uL (0.00-0.20); BASOPHILS % (AUTO) 0.1 % (0.0-5.0); HEMATOCRIT 38.2 % (42-54); IMMATURE GRANULOCYTE ABSOLUTE 0.11 K/uL (0-1); LYMPHOCYTES # (AUTO) 3.1 K/uL (1.0-4.8); LYMPHOCYTES % (AUTO) 19.2 % (21.0-51.0); MEAN CORPUSCULAR HEMOGLOBIN 24.3 pg (27.0-33.0); MEAN CORPUSCULAR HGB CONC 31.4 g/dL (32.0-36.0); MEAN CORPUSCULAR VOLUME 77.3 fL (79-99); MONOCYTES # (AUTO) 0.4 K/uL (0.1-1.0); MONOCYTES % (AUTO) 2.7 % (3.0-13.0); NEUTROPHILS # (AUTO) 12.4 K/uL (1.8-7.7); NEUTROPHILS % (AUTO) 77.3 % (40.0-77.0); PLATELET COUNT (AUTO) 297 K/uL (130-400); RED BLOOD CELL COUNT(AUTO) 4.94 MIL/uL (4.50-6.20); WHITE BLOOD COUNT (AUTO) 16.1 K/uL (4.8-10.8)
--- NOTE | 2024-10-22 16:46 | HMCIMG ---
ABD 1VW HISTORY: Small bowel obstruction COMPARISON: None FINDINGS: A frontal projection of the abdomen was obtained. Small bowel dilatation is seen. Fecal material is seen in the colon. Degenerative changes of the thoracolumbar spine are noted. IMPRESSION: 1. Small bowel dilatation.
--- NOTE | 2024-10-22 18:35 | NUR ---
DCP Pt awake, alert, oriented x3 lives alone. Independent. Pt does not use medical equipment for ADLs. Daughter Ángel Samayoa [phone] is available if needed on discharge. Pt anticipates discharge is for home. Addendum: 10/22/24 at 1837 by ELIESER MCKENZIE RN CM Amended: Links added.
[2024-10-22 19:32] LABS: APPEARANCE,URINE CLEAR (CLEAR); BILIRUBIN,URINE NEGATIVE (NEGATIVE); COLOR,URINE YELLOW (YELLOW); GLUCOSE, URINE (UA) NEGATIVE (NEGATIVE); KETONES,URINE 20 mg/dL (NEGATIVE); LEUKOCYTE ESTERASE ,URINE 500 Leu/uL (NEGATIVE); NITRATE,URINE NEGATIVE (NEGATIVE); PROTEIN,URINE 30 mg/dL (NEGATIVE); UROBILINOGEN,URINE 0.2 mg/dL (0.2-1.0)
[2024-10-22 19:33] LABS: ADD UA MICROSCOPIC YES
[2024-10-22 19:36] LABS: BACTERIA,URINE RARE /HPF (None Seen); MUCUS,URINE RARE LPF (None Seen); SQUAMOUS EPITHELIAL CELL,UR RARE /HPF (0-2); WBC,URINE 26-50 /HPF (0-1)
[2024-10-23] VITALS: BP 164/67; PULSE 101; RESP 19; TEMP 98.1
[2024-10-23 04:00] VITALS: BP 159/69; PULSE 98; RESP 20; TEMP 98.2
[2024-10-23 04:51] LABS: BASOPHILS # (AUTO) 0.02 K/uL (0.00-0.20); BASOPHILS % (AUTO) 0.1 % (0.0-5.0); HEMATOCRIT 39.6 % (42-54); LYMPHOCYTES # (AUTO) 3.1 K/uL (1.0-4.8); LYMPHOCYTES % (AUTO) 19.8 % (21.0-51.0); MEAN CORPUSCULAR HEMOGLOBIN 24.3 pg (27.0-33.0); MEAN CORPUSCULAR HGB CONC 31.1 g/dL (32.0-36.0); MEAN CORPUSCULAR VOLUME 78.3 fL (79-99); MONOCYTES # (AUTO) 0.6 K/uL (0.1-1.0); MONOCYTES % (AUTO) 3.6 % (3.0-13.0); NEUTROPHILS # (AUTO) 11.9 K/uL (1.8-7.7); NEUTROPHILS % (AUTO) 75.9 % (40.0-77.0); PLATELET COUNT (AUTO) 271 K/uL (130-400); RED BLOOD CELL COUNT(AUTO) 5.06 MIL/uL (4.50-6.20); WHITE BLOOD COUNT (AUTO) 15.7 K/uL (4.8-10.8)
[2024-10-23 05:06] LABS: ALBUMIN 2.2 g/dL (3.5-5.0); BILIRUBIN,TOTAL 0.9 mg/dL (0.2-1.0); MAGNESIUM 1.8 mg/dL (1.80-2.40); POTASSIUM 4.5 mmol/L (3.5-5.1); TOTAL PROTEIN, SERUM 6.4 g/dL (6.0-8.3)
[2024-10-23 08:00] VITALS: BP 184/72; PULSE 100; RESP 18; TEMP 97.7; O2SAT 97
--- NOTE | 2024-10-23 08:11 | PN ---
[facility] PROGRESS NOTE Date of Visit: Oct 23, 2024 Time of Visit: 08:09 Events / Notes: [79 YO with ascending colon cancer who underwent a robotic assisted right hemicolectomy with omental flap creation, and Systemic ICG for perfusion assessment of anastomotic graft. He had elevated temp 100.6 last night. He is doing very well this morning. His pain is controlled. VSS this am. He has tolerated full liquid diet with no n/v. BBS are clear. Abd is soft and not distended. Active BS present. He reports passing flatus and watery stool x 1. He is voiding well. Incisions D&I potash flaker with dermabond. Encouraged ambulation and I/S exercises.He agreed. 10/22/24: No acute events overnight. Patient is progressing very well. VSS. He is tolerating regular diet; no n/v. He is ambulating, voiding and has had +BMS. BBS are clear. Abdomen is soft and not distended. Active BS are present. Plan for discharge this afternoon after repeat CBC. Encouraged ambulation. All home care instructions with ER warnings were given to patient and daughter. Both verbalized understanding and agreement. 10/23/24: No acute events overnight. Patient reports feeling better. He is tolerating soft diet well. No n/v. He abdomen is soft with active BS. He has had another +BM. He is voiding better today. WBC trending down. Plan for discharge from colorectal standpoint. He will f/u at [facility] on Sunday10/27/24. Will send Cipro bid x7 days to pharmacy. Patient and daughter agree. ] Review of Systems: CONSTITUTIONAL: No malaise or change in sensation of wellbeing. ENMT: No rhinorrhea, otorrhea, sinus pain, ear ache. CARDIOVASCULAR: No angina, palpitations, orthopnea or paroxysmal dyspnea. RESPIRATORY: No SOB. GASTROINTESTINAL: No abdominal pain, nausea, vomiting, diarrhea, hematemesis, melena or change in the patient's habitual bowel movements consistency/number. GENITOURINARY: No dysuria, hematuria or change in bladder continence. MUSCULOSKELETAL: No new muscle pain or decrease in muscular strength. No new joint swelling, redness or tenderness. SKIN: No new rash. Physical Exam: GEN: Awake, alert, oriented in person, time and place, and in no acute distress. HEENT: No rhinorrhea. Oral pharyngeal mucosa is pink, moist and within normal limits. CHEST: Inspection, palpation of the chest were unremarkable. Lung auscultation revealed normal breath sounds bilaterally. CARDIAC: Heart sounds are regular. ABD: Soft, non-tender and not distended. No peritoneal signs on palpation. No organomegaly. Normal bowel sounds.Incisions D& I to with dermabond. EXT: No cyanosis or clubbing. No edema. SKIN: Intact. No rashes. JOINTS: No evidence of synovitis or acute arthritis. NEURO: Alert and oriented to name, place and person. No focal motor deficits. Normal speech. Strength is normal. Vital Signs (last 8hr) Date Time Temp Pulse Resp B/P (MAP) Pulse Ox O2 Delivery O2 Flow Rate FiO2 10/23/24 04:00 98.2 98 20 159/69 97 Room Air Laboratory: [ ] Laboratory: Test 10/23/24 04:26 10/22/24 14:45 10/22/24 11:09 10/22/24 05:34 Range/Units White Blood Count 15.7 H 4.8-10.8 K/uL Red Blood Count 5.06 4.50-6.20 MIL/uL Hemoglobin 12.3 L 14.0-18.0 g/dL Hematocrit 39.6 L 42-54 % Mean Corpuscular Volume 78.3 L 79-99 fL Mean Corpuscular Hemoglobin 24.3 L 27.0-33.0 pg Mean Corpuscular Hemoglobin Concent 31.1 L 32.0-36.0 g/dL Red Cell Distribution Width 17.0 H 11.0-15.5 % Platelet Count 271 130-400 K/uL Mean Platelet Volume 10.4 7.5-10.5 fL Immature Granulocyte % (Auto) 0.6 0-1 % Neutrophils (%) (Auto) 75.9 40.0-77.0 % Lymphocytes (%) (Auto) 19.8 L 21.0-51.0 % Monocytes (%) (Auto) 3.6 3.0-13.0 % Eosinophils (%) (Auto) 0.0 0.0-8.0 % Basophils (%) (Auto) 0.1 0.0-5.0 % Neutrophils # (Auto) 11.9 H 1.8-7.7 K/uL Lymphocytes # (Auto) 3.1 1.0-4.8 K/uL Monocytes # (Auto) 0.6 0.1-1.0 K/uL Eosinophils # (Auto) 0.00 0.00-0.70 K/uL Basophils # (Auto) 0.02 0.00-0.20 K/uL Absolute Immature Granulocyte (auto 0.10 0-1 K/uL Nucleated Red Blood Cells 0.0 0.0-0.19 % Red Blood Cell Morphology See comments Sodium Level 137 136-145 mmol/L Potassium Level 4.5 3.5-5.1 mmol/L Chloride Level 103 101-111 mmol/L Carbon Dioxide Level 27 21-32 mmol/L Blood Urea Nitrogen 18 7-18 mg/dL Creatinine 1.0 0.5-1.3 mg/dL Glomerular Filtration Rate Calc 78 >90 mL/min Random Glucose 125 H 70-105 mg/dL Total Calcium 9.1 8.5-10.1 mg/dL Magnesium Level 1.80 1.80-2.40 mg/dL Total Bilirubin 0.9 0.2-1.0 mg/dL Aspartate Amino Transf (AST/SGOT) 18 10-37 U/L Alanine Aminotransferase (ALT/SGPT) 13 12-78 U/L Alkaline Phosphatase 77 50-136 U/L C-Reactive Protein, Quantitative 181.40 H 0.5-3.0 mg/L Total Protein 6.4 6.0-8.3 g/dL Albumin 2.2 L 3.5-5.0 g/dL Urine Color YELLOW YELLOW Urine Appearance CLEAR CLEAR Urine pH 6.0 5.0-8.0 Urine Specific Price 1.016 1.001-1.031 Urine Protein 30 H NEGATIVE mg/dL Urine Glucose (UA) NEGATIVE NEGATIVE mg/dL Urine Ketones 20 H NEGATIVE mg/dL Urine Occult Blood +- (TRACE) H NEGATIVE Urine Nitrate NEGATIVE NEGATIVE Urine Bilirubin NEGATIVE NEGATIVE mg/dL Urine Urobilinogen 0.2 0.2-1.0 mg/dL Urine Leukocyte Esterase 500 H NEGATIVE Hien/uL Urine RBC 2-5 H 0-1 /HPF Urine WBC 26-50 H 0-1 /HPF Urine Squamous Epithelial Cells RARE 0-2 /HPF Urine Bacteria RARE None Seen /HPF Erythrocyte Sedimentation Rate 60 H 0-20 MM/HR Procalcitonin 1.62 H 0.05-0.5 ng/mL Current Medications Medications (Trade) Dose Ordered Sig/Hayden Route PRN Reason Start Time Stop Time Status Last Admin Dose Admin Acetaminophen (TYLenol 325MG TAB) 650 mg Q4H PRN PO TEMPERATURE GREATER THAN 101.5 10/21/24 13:00 11/20/24 12:59 Acetaminophen (TYLenol 325MG TAB) 650 mg Q6H PRN PO MILD PAIN (1-3) 10/21/24 13:00 11/20/24 12:59 Acetaminophen/ Hydrocodone Bitart (NORco 5/325MG) 1 tab Q4H PRN PO MODERATE PAIN (4-6) 10/20/24 11:00 10/25/24 10:59 10/21/24 16:31 1 TAB Famotidine (Pepcid 20mg Tab) 20 mg BID PO 10/21/24 21:00 11/20/24 20:59 10/22/24 23:06 20 MG Heparin Sodium (Porcine) (HEParin 5,000 UNIT VIAL) 5,000 unit TID SQ 10/20/24 14:00 11/19/24 13:59 10/22/24 23:17 5,000 UNIT Magnesium Sulfate 50 ml @ 0 mls/hr PROTOCOL IV 10/22/24 11:00 11/21/24 10:59 Morphine Sulfate (morPHINE 4MG SYG) 4 mg Q3H PRN IV SEVERE PAIN (7-10) 10/20/24 11:00 10/27/24 10:59 Ondansetron HCl (zoFRAN 4MG INJ) 4 mg Q4H PRN IVP NAUSEA 10/20/24 11:00 11/19/24 10:59 Piperacillin Sod/ Tazobactam Sod (Zosyn 3.375gm+NS 50ml) 3.375 gm Q8H IV 10/22/24 11:00 11/01/24 10:59 10/23/24 05:21 3.375 GM Potassium Chloride/Dextrose/ Sod Cl 1,000 ml @ 75 mls/hr [id number] IV 10/20/24 11:00 10/21/24 08:07 DC Tamsulosin HCl (FloMAX) 0.4 mg DAILY PO 10/23/24 09:00 11/22/24 08:59 Assessment: [ Ascending colon cancer POD3: Patient progressing as expected.VSS. WBC beginning to trend down this am. KUB reviewed with CR . Patient is tolerating soft diet and has had bms. Plan for discharge from colorectal standpoint. He will f/u at [facility] on Sunday. Will send antibiotics to pharmacy. Will be available if needed. ] Plan: [Soft diet Encourage ambulation Encourage I/S exercises Pain meds as needed Antiemetics prn Please call with questions, concerns, and change in clinical status Appreciate hospitalist's assistance in our patient care. ] ADA ZHONG NP Oct 23, 2024 08:10
[2024-10-23] MEDS: tamSULOsin HCL 0.4 MG CAP.ER.24H PO SCH (08:35)
[2024-10-23] MEDS: HEParin 5,000 UNIT VIAL SQ SCH (09:00)
--- NOTE | 2024-10-23 11:26 | HMCIMG ---
ABD 1VW HISTORY: Abdominal distention COMPARISON: None FINDINGS: A frontal projection of the abdomen was obtained. Small bowel dilatation is seen. Fecal material is seen in the colon. Degenerative changes of the thoracolumbar spine are noted. IMPRESSION: 1. Small bowel dilatation.
--- NOTE | 2024-10-23 11:35 | PN ---
[facility] PROGRESS NOTE Date of Service: Oct 23, 2024 Time of Service: 11:31 SUBJECTIVE: [79-year-old male with adenocarcinoma of the colon status post right colectomy on 10/21/2024. He was evaluated this morning, lying in bed, alert oriented x3. Abdominal surgical site noted no redness but tender to touch. Patient's vitals reviewed. Labs showed leukocytosis slowly downtrending. Patient was noted with urinary tract infection, urine culture in process. We will also request CT abdomen and pelvis without contrast. ] REVIEW OF SYSTEMS CONSTITUTIONAL: Denies fevers, chills, or night sweats. No unintentional weight loss reported. NEUROLOGICAL: Denies headache, amaurosis fugax, motor weakness, sensory deficit, vertigo/spinning sensation, gait abnormalities, or tremors. ENT: No hearing loss, otalgia, otorrhea, rhinitis, rhinorrhea, hoarseness, or sore throat. CARDIOVASCULAR: Denies any exertional angina, dyspnea on exertion, orthopnea, paroxysmal nocturnal dyspnea, palpitations, life-threatening arrhythmias, claudication. PULMONARY: Denies any shortness of breath, cough, phlegm/sputum, hemoptysis, pleuritic chest pain. SLEEP: Denies morning headaches, daytime somnolence or napping. Denies difficulty falling asleep, staying asleep, waking from sleep. Denies knowledge of snoring. GASTROINTESTINAL: Denies any type of dysphagia to either liquids or solids. Denies nausea, vomiting, pyrosis, early satiety, abdominal pain, diarrhea, constipation, or changes in stool consistency or caliber. Denies coffee-ground emesis, hematemesis, hematochezia, or melanotic stools. GENITOURINARY: Denies frequency, urgency, nocturia, hematuria or incontinence (Storage/Irritative symptoms.) Low urinary stream, straining to void, urinary intermittency or hesitancy, splitting of the voiding stream, terminal dribbling. ENDOCRINOLOGIC: Denies polyuria, polydipsia, polyphagia or heat/cold intolerances. HEMATOLOGIC: Denies thrombophilia/previous clots, or coagulopathy/bleeding disorders. ONCOLOGIC: Denies personal history of malignancy. DERMATOLOGIC: Denies rashes or pruritus. PSYCHIATRIC: Denies any suicidal or homicidal ideation. Denies hallucinations. PHYSICAL EXAM GENERAL APPEARANCE: The patient is awake, alert, and oriented, in no acute cardiopulmonary distress. NEUROLOGICAL: Cranial nerves II-XII grossly intact. Motor is 5/5 in bilateral upper and lower extremities proximal to distal. No sensory deficits. HEENT: Face is symmetric. Pupils are equal and reactive. Extraocular movements are intact. NECK: Supple. No JVD. No thyromegaly. No submental, submandibular, pre- /postauricular, occipital or supraclavicular lymphadenopathy. CHEST: Normal chest expansion. No Telemetry. LUNGS: Absence of any rales, rhonchi or any wheezing. CARDIOVASCULAR: Regular. S1 and S2 normal. No appreciable rubs, murmurs or gallops. ABDOMEN: Soft, nontender, and nondistended. There is no rebound, voluntary guarding, or rigidity. : Deferred. No Owens. EXTREMITIES: Non-edematous and not cyanotic. No clubbing. Good capillary refill. SKIN: No skin breakdown. Vital Signs (last 8hr) Date Time Temp Pulse Resp B/P (MAP) Pulse Ox O2 Delivery O2 Flow Rate FiO2 10/23/24 08:00 97.7 100 18 184/72 97 Room Air 21 10/23/24 04:00 98.2 98 20 159/69 97 Room Air LABS: Laboratory: Test 10/23/24 04:26 10/22/24 14:45 10/22/24 11:09 10/22/24 05:34 Range/Units White Blood Count 15.7 H 4.8-10.8 K/uL Red Blood Count 5.06 4.50-6.20 MIL/uL Hemoglobin 12.3 L 14.0-18.0 g/dL Hematocrit 39.6 L 42-54 % Mean Corpuscular Volume 78.3 L 79-99 fL Mean Corpuscular Hemoglobin 24.3 L 27.0-33.0 pg Mean Corpuscular Hemoglobin Concent 31.1 L 32.0-36.0 g/dL Red Cell Distribution Width 17.0 H 11.0-15.5 % Platelet Count 271 130-400 K/uL Mean Platelet Volume 10.4 7.5-10.5 fL Immature Granulocyte % (Auto) 0.6 0-1 % Neutrophils (%) (Auto) 75.9 40.0-77.0 % Lymphocytes (%) (Auto) 19.8 L 21.0-51.0 % Monocytes (%) (Auto) 3.6 3.0-13.0 % Eosinophils (%) (Auto) 0.0 0.0-8.0 % Basophils (%) (Auto) 0.1 0.0-5.0 % Neutrophils # (Auto) 11.9 H 1.8-7.7 K/uL Lymphocytes # (Auto) 3.1 1.0-4.8 K/uL Monocytes # (Auto) 0.6 0.1-1.0 K/uL Eosinophils # (Auto) 0.00 0.00-0.70 K/uL Basophils # (Auto) 0.02 0.00-0.20 K/uL Absolute Immature Granulocyte (auto 0.10 0-1 K/uL Nucleated Red Blood Cells 0.0 0.0-0.19 % Red Blood Cell Morphology See comments Sodium Level 137 136-145 mmol/L Potassium Level 4.5 3.5-5.1 mmol/L Chloride Level 103 101-111 mmol/L Carbon Dioxide Level 27 21-32 mmol/L Blood Urea Nitrogen 18 7-18 mg/dL Creatinine 1.0 0.5-1.3 mg/dL Glomerular Filtration Rate Calc 78 >90 mL/min Random Glucose 125 H 70-105 mg/dL Total Calcium 9.1 8.5-10.1 mg/dL Magnesium Level 1.80 1.80-2.40 mg/dL Total Bilirubin 0.9 0.2-1.0 mg/dL Aspartate Amino Transf (AST/SGOT) 18 10-37 U/L Alanine Aminotransferase (ALT/SGPT) 13 12-78 U/L Alkaline Phosphatase 77 50-136 U/L C-Reactive Protein, Quantitative 181.40 H 0.5-3.0 mg/L Total Protein 6.4 6.0-8.3 g/dL Albumin 2.2 L 3.5-5.0 g/dL Urine Color YELLOW YELLOW Urine Appearance CLEAR CLEAR Urine pH 6.0 5.0-8.0 Urine Specific [place] 1.016 1.001-1.031 Urine Protein 30 H NEGATIVE mg/dL Urine Glucose (UA) NEGATIVE NEGATIVE mg/dL Urine Ketones 20 H NEGATIVE mg/dL Urine Occult Blood +- (TRACE) H NEGATIVE Urine Nitrate NEGATIVE NEGATIVE Urine Bilirubin NEGATIVE NEGATIVE mg/dL Urine Urobilinogen 0.2 0.2-1.0 mg/dL Urine Leukocyte Esterase 500 H NEGATIVE Hien/uL Urine RBC 2-5 H 0-1 /HPF Urine WBC 26-50 H 0-1 /HPF Urine Squamous Epithelial Cells RARE 0-2 /HPF Urine Bacteria RARE None Seen /HPF Erythrocyte Sedimentation Rate 60 H 0-20 MM/HR Procalcitonin 1.62 H 0.05-0.5 ng/mL Current Medications Medications (Trade) Dose Ordered Sig/Hayden Route PRN Reason Start Time Stop Time Status Last Admin Dose Admin Acetaminophen (TYLenol 325MG TAB) 650 mg Q4H PRN PO TEMPERATURE GREATER THAN 101.5 10/21/24 13:00 11/20/24 12:59 Acetaminophen (TYLenol 325MG TAB) 650 mg Q6H PRN PO MILD PAIN (1-3) 10/21/24 13:00 11/20/24 12:59 Acetaminophen/ Hydrocodone Bitart (NORco 5/325MG) 1 tab Q4H PRN PO MODERATE PAIN (4-6) 10/20/24 11:00 10/25/24 10:59 10/21/24 16:31 1 TAB Atorvastatin Calcium (LIPItor 10MG) 5 mg HS PO 10/23/24 21:00 11/22/24 20:59 Famotidine (Pepcid 20mg Tab) 20 mg BID PO 10/21/24 21:00 11/20/24 20:59 10/23/24 08:35 20 MG Heparin Sodium (Porcine) (HEParin 5,000 UNIT VIAL) 5,000 unit BID SQ 10/23/24 08:30 11/19/24 13:59 Heparin Sodium (Porcine) (HEParin 5,000 UNIT VIAL) 5,000 unit TID SQ 10/20/24 14:00 10/23/24 08:33 DC 10/22/24 23:17 5,000 UNIT Losartan Potassium (CozAAR 100MG TAB) 100 mg AM PO 10/24/24 09:00 11/23/24 08:59 Magnesium Sulfate 50 ml @ 0 mls/hr PROTOCOL IV 10/22/24 11:00 11/21/24 10:59 Morphine Sulfate (morPHINE 4MG SYG) 4 mg Q3H PRN IV SEVERE PAIN (7-10) 10/20/24 11:00 10/27/24 10:59 Ondansetron HCl (zoFRAN 4MG INJ) 4 mg Q4H PRN IVP NAUSEA 10/20/24 11:00 11/19/24 10:59 Piperacillin Sod/ Tazobactam Sod (Zosyn 3.375gm+NS 50ml) 3.375 gm Q8H IV 10/22/24 11:00 11/01/24 10:59 10/23/24 05:21 3.375 GM Potassium Chloride/Dextrose/ Sod Cl 1,000 ml @ 75 mls/hr [id number] IV 10/20/24 11:00 10/21/24 08:07 DC Tamsulosin HCl (FloMAX) 0.4 mg DAILY PO 10/23/24 09:00 11/22/24 08:59 10/23/24 08:35 0.4 MG DIAGNOSTICS / RADIOLOGY: [ ] ASSESSMENT: [Subcutaneous air collection is seen along the left lower anterior abdominal pelvic wall musculature, also air collection noted in the right scrotal in right groin region. Bilateral adnexal cystic mass with largest on the right measuring 4.8 x 5 cm and left measuring 3.1 by 3 cm. There may be inguinal hernia with fat content and fat stranding. Gastric distention is small bowel dilatation is seen with air-fluid levels. Transitional point is at the level of the ileum suspicious for small bowel obstruction by CT abdomen pelvis without contrast on 10/23/2024 Profound leukocytosis Bibasilar atelectasis Urinary tract infection Adenocarcinoma of the colon Hypertension Hyperlipidemia Kidney insufficiency ] PLAN: [Admit to medical-surgical floor We will order CT abdomen and pelvis to rule out abscess, reviewed CT results and reported to colorectal surgeon team, Ms. Roa, SECURITY SYSTEMS ENGINEER -we will follow their recommendation: continue you intake with soft diet, if asymptomatic keep NPO in case NG tube Chest x-ray showed atelectasis Continue patient on IV antibiotic with Zosyn every 8 hours Repeat labs tomorrow Treatment plan discussed with patient and family at the bedside Medications to be reconciled once obtained by patient and/or family and av ailable to be reconciled in computer P.r.n. medication for pain nausea and vomiting Questions were answered We will continue to monitor the patient closely Compounder for disposition Rehab: PT/OT/ST GI: PPI DVT: SCD's Code Status: Full Resuscitation Disposition: TBD Prognosis: Guarded NEURO: Minimize central acting medications as possible. Fall Precautions. Well lighted room through the day and minimize interruptions through the night to prevent acute delirium. PULMONARY: Supplemental 02 as needed BiPAP as necessary, for respiratory distress Titrate Fio2 to keep Spo2 > or = 90% DuoNebs and CPT as needed IS hourly while awake for pulmonary hygiene Out of bed to chair as tolerated VAP Bundle Maintain aspiration precautions at all times CARDIOVASCULAR: Follow hemodynamics. Vital signs per facility protocol GI & NUTRITION: Continue nutritional support Aspirations precautions Prokinetic agents and laxatives as needed KIDNEYS & ELECTROLYTES: Strict monitoring of intake and output Daily weights Avoid nephrotoxic agents Monitor electrolytes and replace as needed Goal urine output of 30mL/hr or 0.5mL/kg/hr Medications to be dosed according to renal function. Avoid contrast if possible ENDOCRINE: Maintain blood glucose between 100-180 at all times. Insulin sliding scale for blood glucose management Hypoglycemia and hyperglycemia protocol in place INFECTIOUS DISEASE: Trend temperature, WBC and procalcitonin level Follow cultures, deescalate antibiotics as soon as possible. Panculture if new onset fever HEMATOLOGY & COAGULATION: Monitor H&H. Keep Hgb > 7 Transfuse 1 unit of PRBC for Hgb < 7 Transfuse 1 pack of platelets of platelets < 20, 000 Watch for any signs and symptoms of bleeding SKIN: Pressure ulcer prevention per facility protocol Specialty mattress as needed ] ] ATTESTATION BY PHYSICIAN I have seen and examined the patient. I reviewed the documentation, medical decision making, and treatment plan as noted by the mid-level provider above. I agree with the findings and plan of care. MILTON FRANCOIS MD, JANICE B AGPCCAMERON Oct 23, 2024 11:35
[2024-10-23 12:00] VITALS: BP 157/74; PULSE 77; RESP 18; TEMP 98
[2024-10-23] MEDS: LoSARTan 100 MG TABLET PO ONE (12:34)
--- NOTE | 2024-10-23 14:03 | HMCIMG ---
CT ABDOMEN/PELVIS W/O CONTRAST HISTORY: Bloating, fever COMPARISON: None TECHNIQUE: Multiple sequential axial images of the abdomen and pelvis were obtained from the dome of the diaphragm through symphysis pubis. Patient was not given contrast through intravenous route. Oral contrast was not given. FINDINGS: Tiny bilateral pleural effusions are seen. Bibasilar linear atelectasis changes are seen. Small pericardial effusion is seen. Degenerative changes of the thoracolumbar spine are present. The heart is not enlarged. There is gastric distention is small bowel dilatation is seen with air-fluid levels. Transitional point is at the level of the ileum suspicious for small bowel obstruction. The liver, spleen, adrenal glands and pancreas are unremarkable. There is no evidence of hydronephrosis bilaterally. There are bilateral renal pelvic stones with the largest in the left kidney measuring 2 cm. Subcutaneous air collection is seen along the left lower anterior abdominal pelvic wall musculature. There is also air collection noted in the right scrotal and right groin region. There are bilateral adnexal cystic mass with the largest on the right measuring 4.8 x 5 cm and left measuring 3.1 x 3 cm. There may be right inguinal hernia with fat content and fat stranding. Fecal material is seen in the colon. There are normal size retroperitoneal and mesenteric lymph nodes. No ascites is seen. Atherosclerotic changes are present. Pelvic sidewalls are symmetric bilaterally. Evaluation is limited due to lack of oral and intravenous contrast. Bladder is well distended without wall thickening. IMPRESSION: 1. There is no evidence of hydronephrosis bilaterally. There are bilateral renal pelvic stones with the largest in the left kidney measuring 2 cm. Subcutaneous air collection is seen along the left lower anterior abdominal pelvic wall musculature. There is also air collection noted in the right scrotal and right groin region. There are bilateral adnexal cystic mass with the largest on the right measuring 4.8 x 5 cm and left measuring 3.1 x 3 cm. There may be right inguinal hernia with fat content and fat stranding. 2. There is gastric distention is small bowel dilatation is seen with air-fluid levels. Transitional point is at the level of the ileum suspicious for small bowel obstruction. CT was performed with one or more following dose reduction techniques: automated exposure control, adjustment of the mA and kv according to patient's size, or use of a iterative reconstruction technique.
[2024-10-23 16:00] VITALS: BP 142/64; PULSE 99; RESP 18; TEMP 98.4
[2024-10-23 20:00] VITALS: BP 154/79; PULSE 102; RESP 19; TEMP 98.5; O2SAT 96
[2024-10-23] MEDS: atorVAStatin 10 MG TABLET PO SCH (21:13)
[2024-10-24] VITALS: BP 155/86; PULSE 114; RESP 19; TEMP 98.4
[2024-10-24 04:00] VITALS: BP 153/79; PULSE 88; RESP 19; TEMP 98.5
[2024-10-24 05:00] LABS: HEMATOCRIT 35.4 % (42-54); MEAN CORPUSCULAR HEMOGLOBIN 24.2 pg (27.0-33.0); MEAN CORPUSCULAR HGB CONC 31.6 g/dL (32.0-36.0); MEAN CORPUSCULAR VOLUME 76.6 fL (79-99); RED BLOOD CELL COUNT(AUTO) 4.62 MIL/uL (4.50-6.20); RED CELL DISTRIBUTION WIDTH 16.6 % (11.0-15.5)
[2024-10-24 05:22] LABS: CREATININE 0.8 mg/dL (0.5-1.3); MAGNESIUM 1.8 mg/dL (1.80-2.40); POTASSIUM 4.4 mmol/L (3.5-5.1)
[2024-10-24 08:13] VITALS: BP 155/74; PULSE 97; RESP 20; TEMP 98
[2024-10-24] MEDS: LoSARTan 100 MG TABLET PO SCH (08:31)
[2024-10-24 09:00] VITALS: O2SAT 96
--- NOTE | 2024-10-24 09:39 | PN ---
[facility] PROGRESS NOTE Date of Visit: Oct 24, 2024 Time of Visit: 09:34 Events / Notes: [79 YO with ascending colon cancer who underwent a robotic assisted right hemicolectomy with omental flap creation, and Systemic ICG for perfusion assessment of anastomotic graft. He had elevated temp 100.6 last night. He is doing very well this morning. His pain is controlled. VSS this am. He has tolerated full liquid diet with no n/v. BBS are clear. Abd is soft and not distended. Active BS present. He reports passing flatus and watery stool x 1. He is voiding well. Incisions D&I rock with dermabond. Encouraged ambulation and I/S exercises.He agreed. 10/22/24: No acute events overnight. Patient is progressing very well. VSS. He is tolerating regular diet; no n/v. He is ambulating, voiding and has had +BMS. BBS are clear. Abdomen is soft and not distended. Active BS are present. Plan for discharge this afternoon after repeat CBC. Encouraged ambulation. All home care instructions with ER warnings were given to patient and daughter. Both verbalized understanding and agreement. 10/23/24: No acute events overnight. Patient reports feeling better. He is tolerating soft diet well. No n/v. He abdomen is soft with active BS. He has had another +BM. He is voiding better today. WBC trending down. Plan for discharge from colorectal standpoint. He will f/u at [facility] on Sunday10/27/24. Will send Cipro bid x7 days to pharmacy. Patient and daughter agree. 10/24/24: Patient doing well. He continues to tolerated soft diet. No n/v. BBS. are clear. Abd is mildly distended but soft and nontender. Incisions D&I code enforcement officer. He reports having 2 bms last night. WBC at 10 this am. Will continue to monitor. Informed possible need for NG tube if vomiting presents. He and daughter agree. ] Review of Systems: CONSTITUTIONAL: No malaise or change in sensation of wellbeing. ENMT: No rhinorrhea, otorrhea, sinus pain, ear ache. CARDIOVASCULAR: No angina, palpitations, orthopnea or paroxysmal dyspnea. RESPIRATORY: No SOB. GASTROINTESTINAL: No abdominal pain, nausea, vomiting, diarrhea, hematemesis, melena or change in the patient's habitual bowel movements consistency/number. GENITOURINARY: No dysuria, hematuria or change in bladder continence. MUSCULOSKELETAL: No new muscle pain or decrease in muscular strength. No new joint swelling, redness or tenderness. SKIN: No new rash. Physical Exam: GEN: Awake, alert, oriented in person, time and place, and in no acute distress. HEENT: No rhinorrhea. Oral pharyngeal mucosa is pink, moist and within normal limits. CHEST: Inspection, palpation of the chest were unremarkable. Lung auscultation revealed normal breath sounds bilaterally. CARDIAC: Heart sounds are regular. ABD: Soft, non-tender and mildly distended. No peritoneal signs on palpation. No organomegaly. Normal bowel sounds.Incisions D& I to with dermabond. EXT: No cyanosis or clubbing. No edema. SKIN: Intact. No rashes. JOINTS: No evidence of synovitis or acute arthritis. NEURO: Alert and oriented to name, place and person. No focal motor deficits. Normal speech. Strength is normal. Vital Signs (last 8hr) Date Time Temp Pulse Resp B/P (MAP) Pulse Ox O2 Delivery O2 Flow Rate FiO2 10/24/24 08:13 98.1 97 20 155/74 96 Room Air 10/24/24 04:00 98.4 88 19 153/79 96 Room Air Laboratory: [ ] Laboratory: Test 10/24/24 04:44 10/23/24 04:26 10/22/24 14:45 10/22/24 11:09 Range/Units White Blood Count 10.0 4.8-10.8 K/uL Red Blood Count 4.62 4.50-6.20 MIL/uL Hemoglobin 11.2 L 14.0-18.0 g/dL Hematocrit 35.4 L 42-54 % Mean Corpuscular Volume 76.6 L 79-99 fL Mean Corpuscular Hemoglobin 24.2 L 27.0-33.0 pg Mean Corpuscular Hemoglobin Concent 31.6 L 32.0-36.0 g/dL Red Cell Distribution Width 16.6 H 11.0-15.5 % Platelet Count 279 130-400 K/uL Mean Platelet Volume 10.5 7.5-10.5 fL Nucleated Red Blood Cells 0.0 0.0-0.19 % Sodium Level 140 136-145 mmol/L Potassium Level 4.4 3.5-5.1 mmol/L Chloride Level 103 101-111 mmol/L Carbon Dioxide Level 30 21-32 mmol/L Blood Urea Nitrogen 17 7-18 mg/dL Creatinine 0.8 0.5-1.3 mg/dL Glomerular Filtration Rate Calc 91 >90 mL/min Random Glucose 106 H 70-105 mg/dL Total Calcium 8.9 8.5-10.1 mg/dL Magnesium Level 1.80 1.80-2.40 mg/dL Immature Granulocyte % (Auto) 0.6 0-1 % Neutrophils (%) (Auto) 75.9 40.0-77.0 % Lymphocytes (%) (Auto) 19.8 L 21.0-51.0 % Monocytes (%) (Auto) 3.6 3.0-13.0 % Eosinophils (%) (Auto) 0.0 0.0-8.0 % Basophils (%) (Auto) 0.1 0.0-5.0 % Neutrophils # (Auto) 11.9 H 1.8-7.7 K/uL Lymphocytes # (Auto) 3.1 1.0-4.8 K/uL Monocytes # (Auto) 0.6 0.1-1.0 K/uL Eosinophils # (Auto) 0.00 0.00-0.70 K/uL Basophils # (Auto) 0.02 0.00-0.20 K/uL Absolute Immature Granulocyte (auto 0.10 0-1 K/uL Red Blood Cell Morphology See comments Total Bilirubin 0.9 0.2-1.0 mg/dL Aspartate Amino Transf (AST/SGOT) 18 10-37 U/L Alanine Aminotransferase (ALT/SGPT) 13 12-78 U/L Alkaline Phosphatase 77 50-136 U/L C-Reactive Protein, Quantitative 181.40 H 0.5-3.0 mg/L Total Protein 6.4 6.0-8.3 g/dL Albumin 2.2 L 3.5-5.0 g/dL Urine Color YELLOW YELLOW Urine Appearance CLEAR CLEAR Urine pH 6.0 5.0-8.0 Urine Specific [place] 1.016 1.001-1.031 Urine Protein 30 H NEGATIVE mg/dL Urine Glucose (UA) NEGATIVE NEGATIVE mg/dL Urine Ketones 20 H NEGATIVE mg/dL Urine Occult Blood +- (TRACE) H NEGATIVE Urine Nitrate NEGATIVE NEGATIVE Urine Bilirubin NEGATIVE NEGATIVE mg/dL Urine Urobilinogen 0.2 0.2-1.0 mg/dL Urine Leukocyte Esterase 500 H NEGATIVE Hien/uL Urine RBC 2-5 H 0-1 /HPF Urine WBC 26-50 H 0-1 /HPF Urine Squamous Epithelial Cells RARE 0-2 /HPF Urine Bacteria RARE None Seen /HPF Erythrocyte Sedimentation Rate 60 H 0-20 MM/HR Current Medications Medications (Trade) Dose Ordered Sig/Hayden Route PRN Reason Start Time Stop Time Status Last Admin Dose Admin Acetaminophen (TYLenol 325MG TAB) 650 mg Q4H PRN PO TEMPERATURE GREATER THAN 101.5 10/21/24 13:00 11/20/24 12:59 Acetaminophen (TYLenol 325MG TAB) 650 mg Q6H PRN PO MILD PAIN (1-3) 10/21/24 13:00 11/20/24 12:59 Acetaminophen/ Hydrocodone Bitart (NORco 5/325MG) 1 tab Q4H PRN PO MODERATE PAIN (4-6) 10/20/24 11:00 10/25/24 10:59 10/21/24 16:31 1 TAB Atorvastatin Calcium (LIPItor 10MG) 5 mg HS PO 10/23/24 21:00 11/22/24 20:59 10/23/24 21:13 5 MG Famotidine (Pepcid 20mg Tab) 20 mg BID PO 10/21/24 21:00 11/20/24 20:59 10/24/24 08:31 20 MG Heparin Sodium (Porcine) (HEParin 5,000 UNIT VIAL) 5,000 unit BID SQ 10/23/24 08:30 11/19/24 13:59 10/24/24 08:29 5,000 UNIT Heparin Sodium (Porcine) (HEParin 5,000 UNIT VIAL) 5,000 unit TID SQ 10/20/24 14:00 10/23/24 08:33 DC 10/22/24 23:17 5,000 UNIT Losartan Potassium (CozAAR 100MG TAB) 100 mg AM PO 10/24/24 09:00 11/23/24 08:59 10/24/24 08:31 100 MG Magnesium Sulfate 50 ml @ 0 mls/hr PROTOCOL IV 10/22/24 11:00 11/21/24 10:59 Morphine Sulfate (morPHINE 4MG SYG) 4 mg Q3H PRN IV SEVERE PAIN (7-10) 10/20/24 11:00 10/27/24 10:59 Ondansetron HCl (zoFRAN 4MG INJ) 4 mg Q4H PRN IVP NAUSEA 10/20/24 11:00 11/19/24 10:59 Piperacillin Sod/ Tazobactam Sod (Zosyn 3.375gm+NS 50ml) 3.375 gm Q8H IV 10/22/24 11:00 11/01/24 10:59 10/24/24 03:41 3.375 GM Potassium Chloride/Dextrose/ Sod Cl 1,000 ml @ 75 mls/hr [id number] IV 10/20/24 11:00 10/21/24 08:07 DC Tamsulosin HCl (FloMAX) 0.4 mg DAILY PO 10/23/24 09:00 11/22/24 08:59 10/24/24 08:31 0.4 MG Assessment: [ Ascending colon cancer POD3: Patient progressing as expected.VSS. WBC at [address] scan report same as KUB. Patient is tolerating soft diet and has had bms. Informed patient and daughter of possible need for NG tube if vomiting present. At this point plan for discharge from colorectal standpoint remains. All home care and ER warnings given. He will f/u at [facility] on Sunday. antibiotics at the pharmacy. Will be available if needed. ] Plan: [Soft diet Encourage ambulation Encourage I/S exercises Pain meds as needed Antiemetics prn Please call with questions, concerns, and change in clinical status Appreciate hospitalist's assistance in our patient care. ] ADA ZHONG NP Oct 24, 2024 09:39
[2024-10-24] MEDS ORDERED: AMOX1TAB16 PO (10:22)
[2024-10-24] MEDS: BisaCODYL 10 MG SUPP.RECT RC ONE (10:39)
[2024-10-24 11:27] VITALS: BP 151/80; PULSE 98; RESP 20; TEMP 98
--- NOTE | 2024-10-24 13:47 | DS ---
Discharge Summary Hospital Course Summary: 79-year-old male with a history of malignant neoplasm of ascending colon. The patient was being followed by [place] digestive specialist. He has past medical history of essential hypertension and hyperlipidemia. Apparently this patient had a CT at [facility] and underwent colonoscopy after he was found to have mass on CT scan. He was under going workup for recurrent UTIs. This patient had biopsy proven adenocarcinoma of the colon. Patient has been stage and there is no clear evidence of metastatic disease. He was offered surgery for robotic versus laparoscopic versus open partial colectomy for which was done on 10/21/2024, and tolerated well. Operatively, patient did well, he was tolerating his diet, he is currently on soft diet now. Patient did have some markedly elevated leukocytosis hence he was not sent home and was started with broad-spectrum IV antibiotics with Zosyn. Patient came back positive with urinary tract infection and also bilateral atelectasis for which we started patient on IS. Patient did not have any growth on his urine culture. While in-house, patient had two KUB which showed small bowel dilatation though per surgeon, since patient is tolerating diet we will proceed with soft diet. For thoroughness we ordered CT abdomen and pelvis without contrast which showed: 1. There is no evidence of hydronephrosis bilaterally. There are bilateral renal pelvic stones with the largest in the left kidney measuring 2 cm. Subcutaneous air collection is seen along the left lower anterior abdominal pelvic wall musculature. There is also air collection noted in the right scrotal and right groin region. There are bilateral adnexal cystic mass with the largest on the right measuring 4.8 x 5 cm and left measuring 3.1 x 3 cm. There may be right inguinal hernia with fat content and fat stranding. 2. There is gastric distention is small bowel dilatation is seen with air-fluid levels. Transitional point is at the level of the ileum suspicious for small bowel obstruction. This results has been communicated with colorectal team for which they indicated that since patient is asymptomatic and tolerating diet, he we will proceed with current management. Today patient is evaluated in his room, complained of no distress are no abdominal pain. His afebrile. WBCs within normal limits alr ana. He is hemodynamically stable. Today patient can be discharged home as he continued to be stable. Advised to follow up with Dr. Toledo on Sunday as previously arranged. Patient also needs to follow up with PCP in 2-3 days. [employer] Grazer(s): Dr. Toledo- colorectal surgeon Procedure(s): 10/21/24- Robotic assisted right hemicolectomy. Infusion of ICG for perfusion assessment of the graft. Create of pedicle omental flap- Dr. Toledo Assessment/Plan: Discharge diagnoses [Subcutaneous air collection is seen along the left lower anterior abdominal pe lvic wall musculature, also air collection noted in the right scrotal in right groin region. Bilateral adnexal cystic mass with largest on the right measuring 4.8 x 5 cm and left measuring 3.1 by 3 cm. There may be inguinal hernia with fat content and fat stranding. Gastric distention is small bowel dilatation is seen with air-fluid levels. Transitional point is at the level of the ileum suspicious for small bowel obstruction by CT abdomen pelvis without contrast on 10/23/2024 Profound leukocytosis Bibasilar atelectasis Urinary tract infection, POA no growth Adenocarcinoma of the colon Hypertension Hyperlipidemia Kidney insufficiency ] CARDIOVASCULAR: Follow hemodynamics. Vital signs per facility protocol GI & NUTRITION: Continue nutritional support Aspirations precautions Prokinetic agents and laxatives as needed KIDNEYS & ELECTROLYTES: Strict monitoring of intake and output Daily weights Avoid nephrotoxic agents Monitor electrolytes and replace as needed Goal urine output of 30mL/hr or 0.5mL/kg/hr Medications to be dosed according to renal function. Avoid contrast if possible ENDOCRINE: Maintain blood glucose between 100-180 at all times. Insulin sliding scale for blood glucose management Hypoglycemia and hyperglycemia protocol in place INFECTIOUS DISEASE: Trend temperature, WBC and procalcitonin level Follow cultures, deescalate antibiotics as soon as possible. Panculture if new onset fever HEMATOLOGY & COAGULATION: Monitor H&H. Keep Hgb > 7 Transfuse 1 unit of PRBC for Hgb < 7 Transfuse 1 pack of platelets of platelets < 20, 000 Watch for any signs and symptoms of bleeding SKIN: Pressure ulcer prevention per facility protocol Specialty mattress as needed ] ] Discharge Instructions: Follow up with PCP in 2-3 days Follow-up with colorectal surgeon on Sunday10/27/2024 Home Medications: Reported Medications Cyanocobalamin (Vitamin B-12) (Vitamin B-12) 2,500 Mcg Tab.subl, 2000 MCG SL AM, TAB.SL 10/15/24 Losartan Potassium (Losartan Potassium) 100 Mg Tablet, 100 MG PO AM, TAB 10/15/24 Tamsulosin HCl (Flomax) 0.4 Mg Cap.er.24h, 1 CAP PO DAILY for 30 Days, #30 CAP 0 Refills 09/23/24 Ferrous Sulfate (Feosol) 325 Mg (65 Mg Iron) Tablet, 1 TAB PO DAILY for 30 Days, #30 TAB 0 Refills 09/23/24 Pravastatin Sodium (Pravastatin Sodium) 20 Mg Tablet, 1 TAB PO DAILY for 30 Days, #30 TAB 0 Refills 09/23/24 New Medications: Amoxicillin/Potassium Clav (Amox Tr-K Clv 875-125 mg Tab) 875 Mg-125 Mg Tablet 1 TAB PO BID for 7 Days, #14 TAB 0 Refills Continued Medications: Cyanocobalamin (Vitamin B-12) (Vitamin B-12) 2,500 Mcg Tab.subl 2000 MCG SL AM, TAB.SL Ferrous Sulfate (Feosol) 325 Mg (65 Mg Iron) Tablet 1 TAB PO DAILY for 30 Days, #30 TAB 0 Refills Losartan Potassium (Losartan Potassium) 100 Mg Tablet 100 MG PO AM, TAB Pravastatin Sodium (Pravastatin Sodium) 20 Mg Tablet 1 TAB PO DAILY for 30 Days, #30 TAB 0 Refills Tamsulosin HCl (Flomax) 0.4 Mg Cap.er.24h 1 CAP PO DAILY for 30 Days, #30 CAP 0 Refills Time spent arranging discharge: 31-60 minutes ATTESTATION BY PHYSICIAN I have seen and examined the patient. I reviewed the documentation, medical decision making, and treatment plan as noted by the mid-level provider above. I agree with the findings and plan of care. MILTON FRANCOIS MD, [facility] Oct 24, 2024 13:47
--- NOTE | 2024-10-24 15:45 | NUR ---
DC NOTE DC INSTRUCTIONS AND FOLLOW UP APPOINTMENTS WITH E-SCRIPT SENT TO PT'S LOCAL PHARMACY GIVEN TO PT AND DAUGHTER .VERBALIZED UNDERSTANDING. PIV REMOVED,CATHETER INTACT, DENIES ANY PAIN OR DISCOMFORT. PT IS WHEELED DOWNSTAIRS WITH RECREATION ADVISER INTO VIA PRIVATE CAR, NO FURTHER COMMENTS OR CONCERNS AT THIS TIME.
== END 2024-10-24 15:45 | disposition home or self-care (01) | DRG 330 ==
LOC: DAHIP 06:26 → 4DH 13:00
PROVIDERS: ADMIT Surgery; ATTEND Surgery
PROC: 0DTF4ZZ Resection of Right Large Intestine, Percutaneous Endoscopic Approach (ICD-10-PCS; 2024-10-20)
PROC: 0DXU4ZW Transfer Omentum to Abdominal Region, Percutaneous Endoscopic Approach (ICD-10-PCS; 2024-10-20)
PROC: 8E0W4CZ Robotic Assisted Procedure of Trunk Region, Percutaneous Endoscopic Approach (ICD-10-PCS; principal; 2024-10-20 07:52)
DX: C18.2 Malignant neoplasm of ascending colon (principal); J98.11 Atelectasis; K56.609 Unspecified intestinal obstruction, unspecified as to partial versus complete obstruction; N39.0 Urinary tract infection, site not specified; I10 Essential (primary) hypertension; E78.5 Hyperlipidemia, unspecified; D72.829 Elevated white blood cell count, unspecified; K31.89 Other diseases of stomach and duodenum; N20.0 Calculus of kidney; Z80.1 Family history of malignant neoplasm of trachea, bronchus and lung; Z79.899 Other long term (current) drug therapy; Z80.7 Family history of other malignant neoplasms of lymphoid, hematopoietic and related tissues; Z85.038 Personal history of other malignant neoplasm of large intestine
CPT/HCPCS: 36415; 71045; 74018; 74176; 80048; 80053; 81001; 83735; 84145; 85025; 85027; 85610; 85651; 85730; 86140; 86850; 86900; 86901; 87086; 88309; 93005; A4344; G0378; J0330; J0360; J1100; J1644; J2003; J2185; J2250; J2371; J2405; J2543; J2704; J2710; J3010; J3480; J3490; J7120; P9045; A4215; A4216; A4221; A4222; A4223; A4649; A4930; A6260; C1769; J0665